=== PATIENT | female | born 1945 | race Caucasian/White ===

== ENCOUNTER 2021-07-10 08:42 | Day surgery (SDC) | payer MEDICARE ==
[2021-07-08 09:57] VITALS: BMI 30.5
[~2021-07-10 08:42] MED LIST: LACTATED RINGERS 1,000 ML IV SCH; LIDOCAINE 1% (10MG/ML) FOR IV START INTRADERMA PRN
[2021-07-10 09:08] VITALS: TEMP 96.8
[2021-07-10] MEDS ORDERED: LIDOCAINE 1% INJ 10MG/ML (20 ML MDV) ONE (09:25)
[2021-07-10] MEDS ORDERED: PROPOFOL 10 MG/ML 20 ML VIAL IV ONE (09:25)
--- NOTE | 2021-07-10 09:52 | P.PCN ---
Date of Procedure: 07/10/21 Procedure(s) Performed: BRIEF HISTORY: Patient is a 76-year-old pleasant female scheduled for an elective colonoscopy as a part of evaluation of prior history of colon polyps. Last colonoscopy was 5 years ago. PROCEDURE PERFORMED: Colonoscopy. PREOPERATIVE DIAGNOSIS: History of colon polyps. IV sedation per Anesthesia. PROCEDURE: After informed consent was obtained, the patient, was brought into the endoscopy unit. IV sedation was administered by Anesthesia under continuous monitoring. Digital rectal examination was normal. Initially the Olympus CF-160 flexible video colonoscope was then inserted in the rectum, gradually advanced into the cecum without any difficulty. Careful examination was performed as the scope was gradually being withdrawn. Ileocecal valve and the appendiceal orifice were visualized and appeared normal. Prep was excellent. Mucosa of the cecum, ascending colon, transverse colon, descending colon, sigmoid colon, and rectum appeared normal. Scattered sigmoid diverticulosis. Reactive Retroflexion was performed in the rectum and no lesions were seen. The patient tolerated the procedure well. IMPRESSION: Normal-appearing colon from rectum to cecum with no evidence of colorectal neoplasia Scattered sigmoid diverticulosis. RECOMMENDATIONS: Findings of this examination were discussed with the patient as well as her family. She was advised to have a repeat screening colonoscopy in 10 years..
[2021-07-10 10:26] VITALS: BP 110/70; PULSE 70; RESP 20
== END 2021-07-10 10:24 | disposition home or self-care (01) ==
LOC: ORWHC2ENDO 08:42
PROVIDERS: ATTEND Internal Medicine Gastroenterology
DX: Z12.11 Encounter for screening for malignant neoplasm of colon (principal); K57.90 Diverticulosis of intestine, part unspecified, without perforation or abscess without bleeding; K21.9 Gastro-esophageal reflux disease without esophagitis; Z86.010 Personal history of colon polyps; Z79.899 Other long term (current) drug therapy
CPT/HCPCS: J2001; J2704; G0105; 45378

== ENCOUNTER 2022-04-25 11:04 | Emergency (ER) | payer MEDICARE ==
[2022-04-25 11:35] VITALS: TEMP 97.6
[2022-04-25] MEDS ORDERED: KETOROLAC 15 MG/ML 1 ML VIAL IM STA (12:02)
[2022-04-25] MEDS ORDERED: ORPHENADRINE 30 MG/ML 2 ML VIAL IM STA (12:02)
--- NOTE | 2022-04-25 12:10 | ED ---
General Adult HPI - General Chief complaint: Extremity Injury, Lower Stated complaint: leg pain Time Seen by Provider: 04/25/22 11:46 Source: patient, family, RN notes reviewed Mode of arrival: ambulatory Limitations: no limitations - History of Present Illness Initial comments: Patient is a pleasant 76-year-old female presenting to the emergency room with lower back pain that is radiating into her bilateral lower extremities. She reports that she is having sciatica pain in the posterior aspects of both thighs. She notes pain with ambulation but is able to ambulate and move her extremities with out weakness. She has had increase in lower back pain with radiation for the last 2 days without any improvement in symptoms. She denies any trauma or known inciting incident. She reports known chronic back pain but typically does not have any sciatica. In addition to her back pain she has a past medical history significant for osteoporosis, osteoarthritis and hypertension. - Related Data Home Medications Medication Instructions Recorded Confirmed Alendronate Sodium [Fosamax] 70 mg PO WEEKLY 07/08/21 07/10/21 Aspirin 81 mg PO DAILY 07/08/21 07/10/21 Calcium Carbonate/Vitamin D3 1 each PO BID 07/08/21 07/10/21 [Caltrate 600 Plus D3 20 Mcg (800 Iu)] Losartan Potassium [Cozaar] 100 mg PO DAILY 07/08/21 07/10/21 [place]-3 Fatty Acids/Fish Oil [Fish 1 each PO BID 07/08/21 07/10/21 Oil 1,000 mg Softgel] Previous Rx's Medication Instructions Recorded Cyclobenzaprine HCl 5 mg PO TID 5 Days #15 tab 04/25/22 Ketorolac [Toradol] 10 mg PO Q8H PRN 5 Days #15 tab 04/25/22 Allergies Allergy/AdvReac Type Severity Reaction Status Date / Time No Known Allergies Allergy Verified 04/25/22 11:32 Review of Systems ROS Statement: Those systems with pertinent positive or pertinent negative responses have been documented in the HPI. ROS Other: All systems not noted in ROS Statement are negative. Past Medical History Past Medical History: Hypertension, Musculoskeletal Disorder, Osteoarthritis (OA) Additional Past Medical History / Comment(s): hx. colon polyps, osteoporosis, chronic back pain History of Any Multi-Drug Resistant Organisms: None Reported Past Surgical History: Hysterectomy, Orthopedic Surgery Additional Past Surgical History / Comment(s): colonoscopies, left foot surg. Past Anesthesia/Blood Transfusion Reactions: Postoperative Nausea & Vomiting (PONV) Past Psychological History: No Psychological Hx Reported Smoking Status: Never smoker Past Alcohol Use History: Occasional Past Drug Use History: None Reported General Exam Limitations: no limitations General appearance: alert, in no apparent distress Head exam: Present: atraumatic, normocephalic, normal inspection Eye exam: Present: normal appearance, PERRL, EOMI. Absent: scleral icterus, co njunctival injection, periorbital swelling ENT exam: Present: normal exam, mucous membranes moist Neck exam: Present: normal inspection, full ROM Respiratory exam: Present: normal lung sounds bilaterally. Absent: respiratory distress, wheezes, rales, rhonchi, stridor Cardiovascular Exam: Present: regular rate, normal rhythm, normal heart sounds. Absent: systolic murmur, diastolic murmur, rubs, gallop, clicks GI/Abdominal exam: Present: soft, normal bowel sounds. Absent: distended, tenderness, guarding, rebound, rigid Extremities exam: Present: normal inspection, full ROM, normal capillary refill. Absent: tenderness, pedal edema, joint swelling, calf tenderness Back exam: Present: normal inspection, full ROM. Absent: tenderness, muscle spasm, paraspinal tenderness, vertebral tenderness Expanded Back exam: Absent: saddle anesthesia Back exam: Negative Straight Leg Raising: Left, Right Neurological exam: Present: alert, oriented X3, CN II-XII intact Psychiatric exam: Present: normal affect, normal mood Skin exam: Present: warm, dry, intact, normal color. Absent: rash Course Vital Signs 04/25/22 04/25/22 11:28 13:50 Temperature 97.6 F Pulse Rate 58 L 57 L Respiratory 18 16 Rate Blood Pressure 161/93 154/92 O2 Sat by Pulse 100 99 Oximetry Medical Decision Making - Medical Decision Making 76-year-old female presenting with lower back pain with bilateral sciatica posteriorly without any blunt force trauma. History of osteopenia and disc disease. Given history of osteopenia will obtain x-ray of the lumbar spine to rule out fracture. Will give a dose of Toradol and muscle relaxer and evaluate efficacy. Symptoms much improved with Toradol and muscle relaxer. X-ray negative for acute findings. Will discharge home on short course of tordol and muscle relaxer. Advise follow-up with her primary care provider. Avoid heavy lifting. Range of motion as tolerated encouraged. Case discussed with Dr. Clinton. - Radiology Data Radiology results: report reviewed, image reviewed X-ray lumbosacral spine Impression: 1. Diffuse degenerative disc disease. 2.Mild degenerative facet changes Disposition Clinical Impression: Lumbago with sciatica Disposition: HOME SELF-CARE Condition: Stable Instructions (If sedation given, give patient instructions): Sciatica (ED), Lumbar Radiculopathy (ED), Lower Back Exercises (ED) Additional Instructions: Please utilize Toradol and muscle relaxer as prescribed. Do not take any other NSAIDs while taking Toradol. Range of motion as tolerated encouraged. Avoid heavy lifting and bedrest. Please follow-up with your primary care provider. Please return to the Emergency Department if symptoms worsen or any other concerns. Prescriptions: Cyclobenzaprine HCl 5 mg PO TID 5 Days #15 tab Ketorolac [Toradol] 10 mg PO Q8H PRN 5 Days #15 tab PRN Reason: Pain Is patient prescribed a controlled substance at d/c from ED?: No Referrals: Reinaldo Batista MD [Primary Care Provider] - 1-2 days Time of Disposition: 13:12
--- NOTE | 2022-04-25 13:36 | XR ---
EXAMINATION TYPE: XR lumbosacral spine min 4V DATE OF EXAM: 04/25/2022 COMPARISON: None HISTORY: Low back pain radiating to legs TECHNIQUE: 5 view lumbar spine FINDINGS: There are 5 lumbar-type vertebral bodies. Pedicles are intact. Subtle scoliosis is present. Mild facet degenerative changes are present greatest at L5-S1. No spondylolytic defects are evident. There is narrowing of the L5-S1 disc height. Posterior disc space narrowing is present L4-5. Disc sp rachel narrowing is present L2-3 and L1-2. IMPRESSION: 1. Diffuse degenerative disc changes discussed above. 2. Mild degenerative facet changes.
[2022-04-25 13:52] VITALS: BP 154/92; PULSE 57; RESP 16
== END 2022-04-25 13:52 | disposition home or self-care (01) ==
LOC: EC 11:04
DX: I10 Essential (primary) hypertension (principal); M19.90 Unspecified osteoarthritis, unspecified site; M54.40 Lumbago with sciatica, unspecified side; Z79.811 Long term (current) use of aromatase inhibitors; Z79.899 Other long term (current) drug therapy
CPT/HCPCS: 72110; 99283; 96372 ×2; J2360; J1885

== ENCOUNTER → 2022-11-15 | Outpatient (CLI) | payer MEDICARE | END | disposition home or self-care (01) | LOC: LABWHC1 10:10 | PROVIDERS: ATTEND Family Medicine | DX: Z51.81 Encounter for therapeutic drug level monitoring (principal) | CPT/HCPCS: 36415; 81241 ==

== ENCOUNTER → 2023-02-09 | Outpatient (CLI) | payer MEDICARE ==
--- NOTE | 2023-02-09 16:19 | MR ---
EXAMINATION TYPE: MR lumbar spine wo/w con DATE OF EXAM: 02/09/2023 COMPARISON: Lumbosacral spine radiograph 04/25/2022 HISTORY: Low back pain into back of both legs TECHNIQUE: Multiplanar, multisequence images of the lumbar spine were acquired without and with 7 mL intravenous Gadavist gadolinium contrast. FINDINGS: Lumbar segments are intact. No paraspinal masses are identified. Conus medullaris has a normal appe arance. Grade 1 anterolisthesis of L4 on L5 without evidence of pars defects. Type II Modic changes i nvolving the inferior endplate of L1 and superior endplate of L2. There is corresponding enhancement. Additionally there is prominent degenerative changes with STIR signal abnormality and enhancement in volving the L4-L5 facet joints. L1-L2: Right paracentral disc herniation superimposed upon a broad-based disc bulge with caudal migra tion of approximately 6 mm. This results in moderate central canal stenosis. Bilateral facet arthropa thy. Mild bilateral neural foraminal stenosis. L2-L3: Broad-based disc bulge with ligamentum flavum buckling and bilateral facet arthropathy contrib sherine to moderate central canal stenosis. There is moderate bilateral neural foraminal stenosis. L3-L4: Broad-based disc bulge with ligamentum flavum buckling bilateral facet arthropathy contribute to moderate central canal stenosis. Moderate left and mild to moderate right neural foraminal stenosi s. L4-L5: Grade 1 anterolisthesis. Broad-based disc bulge with ligamentum flavum buckling. Bilateral fac et arthropathy demonstrated with ligamentum flavum buckling contributing to severe central canal sten osis. Moderate bilateral neural foraminal stenosis. There is a synovial cyst measuring up to 1.2 cm a long the posterior right aspect of the thecal sac with moderate to severe effacement at the mid L5 le hilton. This does not demonstrate enhancement. L5-S1: Broad-based disc bulge with bilateral facet arthropathy contributing to minimal central canal stenosis. Severe bilateral neural foraminal stenosis. Right extrarenal pelvis. Bilateral renal sinus cysts. IMPRESSION: 1. Right paracentral disc herniation with caudal migration superimposed upon a disc bulge at L1-L2 ca using moderate central canal stenosis. 2. Multilevel degenerative disc disease and facet arthropathy as described above. This is most promin ent at L1-L2 disc space and L4-L5 facet joints with enhancement identified. There is a synovial cyst arising from the L4-L5 facet joint on the right causing moderate to severe central canal stenosis. Se dayan central canal stenosis at L4-L5, moderate central canal stenosis at L2-L3 and L3-L4 secondary to disc bulges with facet arthropathy and ligamentum flavum buckling. 3. Grade 1 anterolisthesis of L4 on L5.
== END | disposition home or self-care (01) ==
LOC: RADMRIMAIN 14:30
PROVIDERS: ATTEND Family Medicine
DX: M46.06 Spinal enthesopathy, lumbar region (principal); M51.36 Other intervertebral disc degeneration, lumbar region; M43.16 Spondylolisthesis, lumbar region; M99.73 Connective tissue and disc stenosis of intervertebral foramina of lumbar region; M47.816 Spondylosis without myelopathy or radiculopathy, lumbar region
CPT/HCPCS: 72158; A9585

== ENCOUNTER → 2023-03-02 | Outpatient (CLI) | payer MEDICARE ==
[2023-03-02 11:45] VITALS: BP 112/74; PULSE 61; RESP 16; TEMP 98.4
--- NOTE | 2023-03-02 13:19 | P.PAINPG ---
PQRS Measure Charge Sheet Comment: HISTORY OF PRESENT ILLNESS: 77 yr old female as a referral from Dr Batista presents today w severe and chronic LBP secondary to DDD, spondylosis and facet arthropathy without myelopathy for evaluation. Pt states pain level is provoked at 8/10 in intensity, constant, localized in the lower lub[place] spine, achy in character w shooting pain towards the BL buttocks and LEs. Pain is provoked by walking, standing for a periods of 10 min or more. Pain is alleviated by physician guided exercises 3 times weekly x 4 mo, heat, ice, medications ([place], Neurontin, Tyl, Ibu), topical, reclining, repositioning and rest . Oswestry axial pain score at 11. PMH: OA, HTN, OP PSH: Colonoscopy (2021), Hysterectomy, L Foot Surgery SH: Never smoker, Occasional ETOH use, No illicit drug use FH: Non contributory All: See list Meds: See list REVIEW OF ORGAN SYSTEMS: CONSTITUTIONAL: No fevers or chills. No recent weight loss. NEUROLOGICAL: + numbness and tingling along the distal extremities. No seizure disorders or headaches. MUSCULOSKELETAL: + pain PSYCHIATRIC: Denies current depression or suicidal thoughts. Physical Examinations : Constitutional : Cooperative , not in acute distress . Neurologic : Cranial nerve II to XII intact. No focal neurological deficits. Psychiatric : alert & oriented x 3. Matching mood & appropriate affect. Judgment & insight intact. Musculoskeletal : Cervical Spine Motor strength in the deltoid and biceps: Normal right side. Normal Left side Motor strength biceps and the wrist extensors: Normal right side . Normal left side Motor strength in the triceps muscle: Normal right side. Normal left side Deep tendon reflexes: Normal at the biceps. Normal at Brachioradialis. Normal at triceps Vertebral body tenderness to deep palpation over Cervical facet loading test: positive bilaterally Spurling test: positive bilaterally Neck distraction test: positive bilaterally Hugo sign: positive bilaterally Lumbar spine Motor strength lower extremities ,thigh and legs 5/5 Right side , 5/5 Left side Deep tendon reflexes : Normal Knee J erk. Normal Ankle Jerk Vertebral body tenderness over L5 Davey Test positive Lumbar facet Loading Test: positive Right / positive Left Range of motion of the lumbar spine Flexion 30 degrees, extension 10 degrees Straight Leg Raise test: Left/ Right positive at 35 degrees Molly test: positive right / positive left. Severe tenderness over the Sacroiliac joint on the Right / Left sides Gaenslen test: positive bilaterally Seated flexion test: positive bilaterally. Sacral spine : Severe tenderness over the Sacroiliac joint: right side / left side Range of motion: Flexion of the lumbar spine <60 degrees Range of motion: Extension of the lumbar spine <20 degrees Gaenslen's Test positive Brenton's Test positive Molly test: positive right side / left side Thigh Thrust Test Sacral Thrust Test Imaging: MRI non contrast of the lumbar spine from 02/09/23 reviewed Assessment/ Plan : Lumbar DDD Recommendation of HYACINTH L5-S1 #1. May need a series of injections for optimal pain relief. Risks, benefits of procedure discussed and patient verbalized understanding. Admits to aspirin or anti- coagulant use or medical history of diabetes. Protocol for discontinuation/ continuation of medications arnulfo procedure discussed. Minimal anesthesia provided, if clinically indicated, consisting of Versed and Fentanyl. All questions answered. I have spent greater than 30 minutes on patient care today. Dr Mc was available by phone for the evaluation of this patient. The time was used to review the medical records including relevant urine studies and Prescription history (MAPs), review of the available imaging, evaluation and examination of the patient, coordination of care with the medical staff and if applicable referring physicians, as well as creation of the medical record Home Medications: Ambulatory Orders Alendronate Sodium [Fosamax] 70 mg PO WEEKLY 07/08/21 Aspirin 81 mg PO DAILY 07/08/21 Calcium Carbonate/Vitamin D3 [Caltrate 600 Plus D3 20 Mcg (800 Iu)] 1 each PO BID 07/08/21 Losartan Potassium [Cozaar] 100 mg PO DAILY 07/08/21 [place]-3 Fatty Acids/Fish Oil [Fish Oil 1,000 mg Softgel] 1 each PO BID 07/08/21 Cyclobenzaprine HCl 5 mg PO TID 5 Days #15 tab 04/25/22 Ketorolac [Toradol] 10 mg PO Q8H PRN 5 Days #15 tab 04/25/22 Controlled Substance Measures - Controlled Substance Measures Is patient prescribed a controlled substance at discharge?: No
== END ==
LOC: PNWHC3 09:40
PROVIDERS: ATTEND Specialist
DX: M51.16 Intervertebral disc disorders with radiculopathy, lumbar region (principal); I10 Essential (primary) hypertension; M19.90 Unspecified osteoarthritis, unspecified site; Z79.82 Long term (current) use of aspirin; Z79.899 Other long term (current) drug therapy
CPT/HCPCS: 99211

== ENCOUNTER → 2023-04-20 | Outpatient (CLI) | payer MEDICARE ==
[2023-04-20 10:02] VITALS: BP 115/77; PULSE 58; RESP 15; TEMP 98.6
--- NOTE | 2023-04-20 15:17 | P.PAINPG ---
PQRS Measure Charge Sheet Comment: HISTORY OF PRESENT ILLNESS: 77 yr old female presents today w severe and chronic LBP secondary to DDD, spondylosis and facet arthropathy without myelopathy for evaluation s/p HYACINTH L5- S1 #1. Pt states she experienced 80% pain relief x 4 wks and ongoing s/p procedure. Pt states pain level is provoked at 2/10 in intensity, constant, localized in the lower lumbar spine, achy in character w shooting pain towards the BL buttocks and LEs. Pain is provoked by walking, standing for a periods of 10 min or more. Pain is alleviated by physician guided exercises 3 times weekly x 4 mo, heat, ice, medications, topical, reclining, repositioning and rest . Oswestry axial pain score at 4. Interventional procedures include HYACINTH L5-S1 #1 Medications include [place], Neurontin, Tyl, ibu REVIEW OF ORGAN SYSTEMS: CONSTITUTIONAL: No fevers or chills. No recent weight loss. NEUROLOGICAL: + numbness and tingling along the distal extremities. No seizure disorders or headaches. MUSCULOSKELETAL: + pain PSYCHIATRIC: Denies current depression or suicidal thoughts. Physical Examinations : Constitutional : Cooperative , not in acute distress . Neurologic : Cranial nerve II to XII intact. No focal neurological deficits. Psychiatric : alert & oriented x 3. Matching mood & appropriate affect. Judgment & insight intact. Musculoskeletal : Cervical Spine Motor strength in the deltoid and biceps: Normal right side. Normal Left side Motor strength biceps and the wrist extensors: Normal right side . Normal left side Motor strength in the triceps muscle: Normal right side. Normal left side Deep tendon reflexes: Normal at the biceps. Normal at Brachioradialis. Normal at triceps Vertebral body tenderness to deep palpation over Cervical facet loading test: positive bilaterally Spurling test: positive bilaterally Neck distraction test: positive bilaterally Hugo sign: positive bilaterally Lumbar spine Motor strength lower extremities ,thigh and legs 5/5 Right side , 5/5 Left side Deep tendon reflexes : Normal Knee Jerk. Normal Ankle Jerk Vertebral body tenderness over L5 Davey Test positive Lumbar facet Loading Test: positive Right / positive Left Range of motion of the lumbar spine Flexion 30 degrees, extension 10 degrees Straight Leg Raise test: Left/ Right positive at 35 degrees Molly test: positive right / positive left. Severe tenderness over the Sacroiliac joint on the Right / Left sides Gaenslen test: positive bilaterally Seated flexion test: positive bilaterally. Sacral spine : Severe tenderness over the Sacroiliac joint: right side / left side Range of motion: Flexion of the lumbar spine <60 degrees Range of motion: Extension of the lumbar spine <20 degrees Gaenslen's Test positive Brenton's Test positive Molly test: positive right side / lef t side Thigh Thrust Test Sacral Thrust Test Imaging: MRI non contrast of the lumbar spine from 02/09/23 reviewed Assessment/ Plan : Lumbar DDD Will manage residual pain and may RTC on an as needed basis. All questions answered. I have spent greater than 30 minutes on patient care today. Dr Mc was available by phone for the evaluation of this patient. The time was used to review the medical records including relevant urine studies and Prescription history (MAPs), review of the available imaging, evaluation and examination of the patient, coordination of care with the medical staff and if applicable referring physicians, as well as creation of the medical record PQRS Narrative: Hx Alcohol Use (MH) No Home Medications: Ambulatory Orders Alendronate Sodium [Fosamax] 70 mg PO CERVANTES 07/08/21 Aspirin 81 mg PO DAILY 07/08/21 Calcium Carbonate/Vitamin D3 [Caltrate 600 Plus D3 20 Mcg (800 Iu)] 1 each PO BID 07/08/21 Losartan Potassium [Cozaar] 100 mg PO DAILY 07/08/21 [place]-3 Fatty Acids/Fish Oil [Fish Oil 1,000 mg Softgel] 1 each PO BID 07/08/21 Cholecalciferol [Vitamin D3 (25 Mcg = 1000 Iu)] 25 mcg PO DAILY 03/21/23 Cyanocobalamin (Vitamin B-12) [Vitamin B-12] 1,000 mcg PO DAILY 03/21/23 Gabapentin [Neurontin] 300 mg PO BID 03/21/23 Turmeric Root Extract [Turmeric] 500 mg PO DAILY 03/21/23 Controlled Substance Measures - Controlled Substance Measures Is patient prescribed a controlled substance at discharge?: No
== END ==
LOC: PNWHC3 09:37
PROVIDERS: ATTEND Specialist
DX: M51.36 Other intervertebral disc degeneration, lumbar region (principal); Z79.82 Long term (current) use of aspirin
CPT/HCPCS: 99211

== ENCOUNTER → 2023-07-04 | Outpatient (CLI) | payer MEDICARE ==
[2023-07-04 11:55] VITALS: BP 128/72; PULSE 89; RESP 17; TEMP 98.9
--- NOTE | 2023-07-04 14:01 | P.PAINPG ---
PQRS Measure Charge Sheet Comment: HISTORY OF PRESENT ILLNESS: A 78 yr old female presents today w severe and chronic LBP secondary to DDD, spondylosis and facet arthropathy without myelopathy for evaluation. Pt states pain level is provoked at 8/10 in intensity, constant, localized in the lower lumbar spine, predominantly axial, achy in character w occasional shooting pain towards the BLEs. Pain is provoked by walking/ standing for a periods of 10 min or more. Pain is alleviated by physician guided exercises 3 times weekly since Nov 2022, heat, ice, medications, topical, reclining, repositioning and rest. Oswestry axial pain score at 17. Interventional procedures include HYACINTH L5-S1 #1 Medications include [place], Neurontin, Tyl, ibu REVIEW OF ORGAN SYSTEMS: CONSTITUTIONAL: No fevers or chills. No recent weight loss. NEUROLOGICAL: + numbness and tingling along the distal extremities. No seizure disorders or headaches. MUSCULOSKELETAL: + pain PSYCHIATRIC: Denies current depression or suicidal thoughts. Physical Examinations : Constitutional : Cooperative , not in acute distress . Neurologic : Cranial nerve II to XII intact. No focal neurological deficits. Psychiatric : alert & oriented x 3. Matching mood & appropriate affect. Judgment & insight intact. Musculoskeletal : Cervical Spine Motor strength in the deltoid and biceps: Normal right side. Normal Left side Motor strength biceps and the wrist extensors: Normal right side . Normal left side Motor strength in the triceps muscle: Normal right side. Normal left side Deep tendon reflexes: Normal at the biceps. Normal at Brachioradialis. Normal at triceps Vertebral body tenderness to deep palpation over Cervical facet loading test: positive bilaterally Spurling test: positive bilaterally Neck distraction test: positive bilaterally Hugo sign: positive bilaterally Lumbar spine Motor strength lower extremities ,thigh and legs 5/5 Right side , 5/5 Left side Deep tendon reflexes : Normal Knee Jerk. Normal Ankle Jerk Vertebral body tenderness over L5 Davey Test positive Lumbar facet Loading Test: positive Right / positive Left Range of motion of the lumbar spine Flexion 30 degrees, extension 10 degrees Straight Leg Raise test: Left/ Right positive at 35 degrees Molly test: positive right / positive left. Severe tenderness over the Sacroiliac joint on the Right / Left sides Gaenslen test: positive bilaterally Seated flexion test: positive bilaterally. Sacral spine : Severe tenderness over the Sacroiliac joint: right side / left side Range of motion: Flexion of the lumbar spine <60 degrees Range of motion: Extension of the lumbar spine <20 degrees Gaenslen's Test positive Brenton's Test positive Molly test: positive right side / left side Thigh Thrust Test Sacral Thrust Test Imaging: MRI non contrast of the lumbar spine from 02/09/23 reviewed Assessment/ Plan : Lumbar DDD Recommendation of BL TFESI L5-S1 #1. May need a series of injectinos for optimal pain relief. Risks, benefits of procedure discussed and pt verbalized understanding. Protocol for discontinuation/ continuation of medications surrounding procedure discussed. All questions answered. I have spent greater than 30 minutes on patient care today. Dr Mc was available by phone for the evaluation of this patient. The time was used to review the medical records including relevant urine studies and Prescription history (MAPs), review of the available imaging, evaluation and examination of the patient, coordination of care with the medical staff and if applicable referring physicians, as well as creation of the medical record PQRS Narrative: Hx Alcohol Use (MH) No Home Medications: Ambulatory Orders Alendronate Sodium [Fosamax] 70 mg PO CERVANTES 07/08/21 Aspirin 81 mg PO DAILY 07/08/21 Calcium Carbonate/Vitamin D3 [Caltrate 600 Plus D3 20 Mcg (800 Iu)] 1 each PO BID 07/08/21 Losartan Potassium [Cozaar] 100 mg PO DAILY 07/08/21 [place]-3 Fatty Acids/Fish Oil [Fish Oil 1,000 mg Softgel] 1 each PO BID 07/08/21 Cholecalciferol [Vitamin D3 (25 Mcg = 1000 Iu)] 25 mcg PO DAILY 03/21/23 Cyanocobalamin (Vitamin B-12) [Vitamin B-12] 1,000 mcg PO DAILY 03/21/23 Gabapentin [Neurontin] 300 mg PO BID 03/21/23 Turmeric Root Extract [Turmeric] 500 mg PO DAILY 03/21/23 Controlled Substance Measures - Controlled Substance Measures Is patient prescribed a controlled substance at discharge?: No
== END ==
LOC: PNWHC3 11:00
PROVIDERS: ATTEND Specialist
DX: M51.36 Other intervertebral disc degeneration, lumbar region (principal); Z79.82 Long term (current) use of aspirin
CPT/HCPCS: 99211

== ENCOUNTER 2023-07-14 10:43 | Day surgery (SDC) | payer MEDICARE ==
[~2023-07-14 10:43] MED LIST changes: -LIDOCAINE 1% (10MG/ML) FOR IV START INTRADERMA PRN
[2023-07-14 11:25] VITALS: RESP 16; TEMP 97.5
[2023-07-14] MEDS ORDERED: methylPREDNISolone ACETATE 40 MG/ML 1 ML VIAL ONE (12:52)
[2023-07-14] MEDS ORDERED: IOPAMIDOL M200 10 ML VIAL ONE (12:52)
--- NOTE | 2023-07-14 13:04 | P.PCN ---
Date of Procedure: 07/14/23 Procedure(s) Performed: PREOPERATIVE DIAGNOSIS: 1-Lumbar radiculopathy . 2-lumbar degenerative disc disease. POSTOPERATIVE DIAGNOSIS: 1-lumbar radiculopathy. 2-lumbar degenerative disc disease. PROCEDURE 1. Transforaminal epidural steroid injection under fluoroscopic guidance atBilateral L5-S1 level. (Fluoroscopy images stored on file in the radiology Department ) 2. Lumbar epidurogram . ANESTHESIA: Local with 1% lidocaine 3 ml. EBL: Minimal PROCEDURE INDICATION: The patient with low back pain and radiculopathy symptoms unresponsive to conservative treatment. PROCEDURE DESCRIPTION / TECHNIQUE: The patient was seen and identified in the preoperative area. Risks, benefits, complications, and alternatives were discussed with the patient. The patient agreed to proceed with the procedure and signed the consent. IV was started, and vital signs were stable. Patient was taken to the OR and time out was completed. The patient was placed in the prone position on procedure table and a pillow was placed under the abdomen to reduce lumbar lordosis. The lumbosacral area was prepped and draped in the usual sterile fashion. Critical pause was taken. Vital signs were closely monitored during the procedure. Using oblique fluoroscopy, the chin of the ``Dave dog at right L5-S1 level was identified, and the skin and deeper tissues just below was localized with 1% lidocaine. Subsequently, a 22-gauge 3.5-inch spinal needle was advanced under a tunneled view fluoroscopic guidance just underneath the chin of the ``Dave dog at the right L5-S1 Under lateral fluoroscopy, the needle was then advanced to the posterior border of the interforaminal space. After negative aspiration of CSF and blood and with no paresthesias, 1 mL Isovue 200 contrast dye was injected excellent epidurogram and outlining of the nerve root Subsequently, 3 mL of block solution containing 20 mg Depo-Medrol and 2 mL of 0.9% normal saline PF was injected. Needle was removed and the same procedure was repeated at the left L5-S1 level . At the end of the procedure, skin was cleansed, and bandages were applied. COMPLICATIONS:none DISPOSITION / PLANS: The patient was placed in a supine position and transferred to the recovery area in a stable condition for observation. There was no evidence of lower extremity motor or sensory deficit after the procedure. Patient was discharged from the recovery room after meeting discharge criteria. Home discharge instructions were given to the patient by the staff. The patient was reexamined prior to discharge.
--- NOTE | 2023-07-14 13:12 | FL ---
EXAMINATION TYPE: FL guided pain mgmt statistic DATE OF EXAM: 07/14/2023 CLINICAL HISTORY: Low back pain. TECHNIQUE: Fluoroscopy. COMPARISON: None. FINDINGS: Fluoroscopic guidance was provided during pain relief procedure performed by Dr. Mc . A total of 6.8 seconds of fluoroscopic time was utilized during the procedure and two spot images are acquired. Images acquired shows needle localization at L5 level. IMPRESSION: As Above. TOTAL DAP = 0.29441 mGy x m2.
[2023-07-14 13:27] VITALS: BP 133/82; PULSE 69
== END 2023-07-14 13:28 | disposition home or self-care (01) ==
LOC: ORPAIN 10:43
PROVIDERS: ATTEND Specialist
DX: M51.16 Intervertebral disc disorders with radiculopathy, lumbar region (principal); M47.26 Other spondylosis with radiculopathy, lumbar region; Z79.82 Long term (current) use of aspirin
CPT/HCPCS: 64483; J1030; Q9966

== ENCOUNTER → 2023-08-04 | Outpatient (CLI) | payer MEDICARE ==
[2023-08-04 10:31] VITALS: BP 136/66; PULSE 89; RESP 15; TEMP 97.9
--- NOTE | 2023-08-04 14:35 | P.PAINPG ---
PQRS Measure Charge Sheet Comment: HISTORY OF PRESENT ILLNESS: A 78 yr old female presents today w severe and chronic LBP secondary to DDD, spondylosis and facet arthropathy without myelopathy for evaluation s/p BL TFESI L5-S1 #1. Pt states she experienced 40 % pain relief x 3 wks s/p procedure. Pt states pain level is provoked at 6/10 in intensity, constant, localized in the lower lumbar spine, predominantly axial, achy in character without shooting pain. Pain is provoked by climbing stairs or walking/ standing for a periods of 10 min or more. Pain is alleviated by physician guided exercises 3 times weekly since Nov 2022, heat, ice, medications, topical, reclining, repositioning and rest. Oswestry axial pain score at 16. Interventional procedures include HYACINTH L5-S1 x1, BL TFESI L5-S1 x1 Medications include [place], Neurontin, Tyl, ibu REVIEW OF ORGAN SYSTEMS: CONSTITUTIONAL: No fevers or chills. No recent weight loss. NEUROLOGICAL: + numbness and tingling along the distal extremities. No seizure disorders or headaches. MUSCULOSKELETAL: + pain PSYCHIATRIC: Denies current depression or suicidal thoughts. Physical Examinations : Constitutional : Cooperative , not in acute distress . Neurologic : Cranial nerve II to XII intact. No focal neurological deficits. Psychiatric : alert & oriented x 3. Matching mood & appropriate affect. Judgment & insight intact. Musculoskeletal : Cervical Spine Motor strength in the deltoid and biceps: Normal right side. Normal Left side Motor strength biceps and the wrist extensors: Normal right side . Normal left side Motor strength in the triceps muscle: Normal right side. Normal left side Deep tendon reflexes: Normal at the biceps. Normal at Brachioradialis. Normal at triceps Vertebral body tenderness to deep palpation over Cervical facet loading test: positive bilaterally Spurling test: positive bilaterally Neck distraction test: positive bilaterally Hugo sign: positive bilaterally Lumbar spine Motor strength lower extremities ,thigh and legs 5/5 Right side , 5/5 Left side Deep tendon reflexes : Normal Knee Jerk. Normal Ankle Jerk Vertebral body tenderness Davey Test positive Taut bands w twitch response over BL L2-S1 Lumbar facet Loading Test: positive Right / positive Left Range of motion of the lumbar spine Flexion 30 degrees, extension 10 degrees Straight Leg Raise test: Left/ Right positive at 35 degrees Molly test: positive right / positive left. Severe tenderness over the Sacroiliac joint on the Right / Left sides Dereje test: positive bilaterally Seated flexion test: positive bilaterally. Sacral spine : Severe tenderness over the Sacroiliac joint: right side / left side Range of motion: Flexion of the lumbar spine <60 degrees Range of motion: Extension of the lumbar spine <20 degrees Gaenslen's Test positive Brenton's Test positive Molly test: positive right side / left side Thigh Thrust Test Sacral Thrust Test Imaging: MRI non contrast of the lumbar spine from 02/09/23 reviewed Assessment/ Plan : Lumbar DDD, Lumbar stenosis Recommendation of BL TPIs L2-S1 #1. Will follow up w Dr Smith to explore additional treatment options. Risks, benefits of procedure discussed and pt verbalized understanding. Protocol for discontinuation/ continuation of medications surrounding procedure discussed. All questions answered. I have spent greater than 30 minutes on patient care today. Dr Mc was available by phone for the evaluation of this patient. The time was used to review the medical records including relevant urine studies and Prescription history (MAPs), review of the available imaging, evaluation and examination of the patient, coordination of care with the medical staff and if applicable referring physicians, as well as creation of the medical record PQRS Narrative: Hx Alcohol Use (MH) No Home Medications: Ambulatory Orders Alendronate Sodium [Fosamax] 70 mg PO CERVANTES 07/08/21 Aspirin 81 mg PO DAILY 07/08/21 Calcium Carbonate/Vitamin D3 [Caltrate 600 Plus D3 20 Mcg (800 Iu)] 1 each PO BID 07/08/21 Losartan Potassium [Cozaar] 100 mg PO DAILY 07/08/21 [place]-3 Fatty Acids/Fish Oil [Fish Oil 1,000 mg Softgel] 1 each PO BID 07/08/21 Cholecalciferol [Vitamin D3 (25 Mcg = 1000 Iu)] 25 mcg PO DAILY 03/21/23 Cyanocobalamin (Vitamin B-12) [Vitamin B-12] 1,000 mcg PO DAILY 03/21/23 Gabapentin [Neurontin] 300 mg PO BID 03/21/23 Turmeric Root Extract [Turmeric] 500 mg PO DAILY 03/21/23 Controlled Substance Measures - Controlled Substance Measures Is patient prescribed a controlled substance at discharge?: No
== END ==
LOC: PNWHC3 10:08
PROVIDERS: ATTEND Specialist
DX: M51.37 Other intervertebral disc degeneration, lumbosacral region (principal); M43.16 Spondylolisthesis, lumbar region; Z79.82 Long term (current) use of aspirin
CPT/HCPCS: 99211

== ENCOUNTER 2023-08-18 09:49 | Day surgery (SDC) | payer MEDICARE ==
[2023-08-15 16:44] VITALS: BMI 27.8
--- NOTE | 2023-08-18 11:43 | P.PN ---
Subjective Progress Note Date: 08/18/23 Since follow-up visit for this 78 years old female with a history of chronic and severe low back pain, he is diagnosed with lumbar degenerative disc disease lumbar spinal stenosis, lumbar spondylosis with lumbar facet arthropathy, patient had minimal benefit from transforaminal epidural steroid injection, she was scheduled to have a trigger point injection, to be done today, the preop holding area examination was negative for any trigger point in the lumbar paraspinal muscles Objective - Vital Signs Vital signs: Vital Signs Temp 97.7 F 08/18/23 11:20 Pulse 68 08/18/23 11:20 Resp 18 08/18/23 11:20 BP 137/79 08/18/23 11:20 Pulse Ox 95 08/18/23 11:20 FiO2 Intake & Output 08/17/23 08/18/23 08/18/23 18:59 06:59 18:59 Weight 69.8 kg - Exam Physical Examinations : -Constitutiona : Cooperative , not in acute distress . -HEENT : nech : supple , no Lymphadenopathy , normal thyroid size . : eyes : no ptosis , no icterus, no photophobia . - neurologic : Cranial nerve II to XII intact , no focal neurological deffecit . -psychatric : alert , oriented X 3 , appropriate affect , intact judgment and insight . -Lymphatic : no Lymphadenopathy . - musculoskeltal : Lumber spine moter stegnth lower extremities ,thigh and legs 5/5 Right side , 5/5 Left side deep tendon reflexes : normal Knee Jerk , normal ankle Jerk lumber facet Loading Test =positive Right , positive Left Range of motion of the lumbar spine Flexion 30 degrees, extension 10 degrees strait leg raising test = positive at 45 degree Fabere test= positive Right , and positive LT . tenderness over the Sacroiliac joint on the Right , and Left sides Assessment and Plan Plan: Assessment and plan=1-lumbar spondylosis with lumbar facet arthropathy that myelopathy. 2-lumbar spinal stenosis. 3-lumbar degenerative disc disease. Patient had transforaminal epidural steroid injection with minimal benefit. Patient was scheduled to have trigger point injection today but the exam was negative for any trigger point injection in the lumbar paraspinal muscles, and exam was directing towards the facetogenic component of the low back pain, patient will be a good candidate to have diagnostic medial branch block lumbar area at L4-5 and L5-S1, she has good result we will proceed with the RFA, procedure risk and benefit and alternative discussed with the patient and agreed with the proceeding, we will get approval from the insurance before we will proceed with the injection Time with Patient: Less than 30
[2023-08-18 12:11] VITALS: BP 137/79; PULSE 68; RESP 18; TEMP 97.7
== END 2023-08-18 11:55 | disposition home or self-care (01) ==
LOC: ORPAIN 09:49
PROVIDERS: ATTEND Specialist
DX: Z53.8 Procedure and treatment not carried out for other reasons (principal); M51.36 Other intervertebral disc degeneration, lumbar region; M47.816 Spondylosis without myelopathy or radiculopathy, lumbar region; M48.061 Spinal stenosis, lumbar region without neurogenic claudication; G89.29 Other chronic pain

== ENCOUNTER 2023-09-02 11:14 | Day surgery (SDC) | payer MEDICARE ==
[2023-09-02] MEDS: LACTATED RINGERS 1,000 ML IV SCH (12:02)
[2023-09-02] MEDS ORDERED: MIDAZOLAM 2 MG/2 ML VIAL ONE (12:11)
[2023-09-02] MEDS ORDERED: fentaNYL (PF) 50 MCG/ML 2 ML AMP ONE (12:11)
[2023-09-02] MEDS ORDERED: ROPIVACAINE 5MG/ML 20ML VIAL ONE (12:16)
[2023-09-02 12:20] VITALS: TEMP 97.2
--- NOTE | 2023-09-02 12:29 | P.PCN ---
Date of Procedure: 09/02/23 Procedure(s) Performed: PREOPERATIVE DIAGNOSIS : 1- Lumbar spondylosis with Facet Arthropathy with out myelopathy . 2- Lumber degenerative disc disease POSTOPERATIVE DIAGNOSIS: 1- Lumbar spondylosis with Facet Arthropathy without myelopathy . 2- Lumber degenerative disc disease PROCEDURE: Diagnostic bilateral L3 , L4 , and L5 medial branch block under fluoroscopy guidance(fluoroscopy images available in the radiology Department ) ( To target the facet joint between Bilateral L4-5 , and L5-S1 ) ANESTHESIA:, Monitored anesthesia care as per anesthesia department. EBL: Minimal COMPLICATION: None PROCEDURE INDICATION: Chronic low back pain secondary to Facet arthropathy unresponsive to conservative treatment. PROCEDURE DESCRIPTION: the patient was seen and identified in the preop holding area , risks and benefits and possible complications of the procedure and alternative were discussed with the patient, and the patient agreed to proceed with the procedure and signed the consent and vital signs monitored during the procedure and fluoroscopy was used to maximize the benefit and accuracy of the needle placement, and sedation was given to decrease patient anxiety, patient was taken to the procedure room and placed in prone position vital signs monitored in the back prepped with chlorhexidine X3 then under strict sterile technique using a right oblique fluoroscopy ,the junction of the transverse process and the superior articulating process of the right L3 , L4 , and L5 vertebra which corresponding to the fluoroscopy image of the eye of the Dave dog on the block side for the medial branches and subsequently , after local infiltration of skin and subcu tissuies with Ropivacaine 0.5 % , one mL at each level ,then 22-gauge Quincke-type needles , 3 needle was used , each one of them placed at the junction of the base of the transverse process and the superior articular process at the appropriate level, and the needle was advanced until the periosteum contacted, needle placement confirmed with AP oblique and lateral view and after appropriate needle placement confirmed, and after negative aspiration for heme and CSF and there was no paresthesia 1-1/2 mL of Ropivacaine 0.5% , then half mL injected at each level after negative aspiration the needle subsequently removed and the same procedure repeated for the left side at left side at L3 , L4 and L5 levels. At the end of the procedure and the needles removed and a bandage applied after the skin was cleaned the cleaning solution patient taken to recovery room in stable condition and monitors in the recovery room for 20-30 minutes and discharged home in stable condition after discharge criteria met and patient will follow up with the pain clinic in 2-4 weeks
--- NOTE | 2023-09-02 12:58 | FL ---
EXAMINATION TYPE: FL guided pain mgmt statistic DATE OF EXAM: 09/02/2023 FLUOROSCOPY Fluoroscopy time of 8 seconds was used during bilateral lumbar facet blocks. 4 image/s document/s th e procedure. 0.11406 mGycm2 DAP
[2023-09-02] MEDS ORDERED: ONDANSETRON 4 MG/2 ML VIAL ONE (13:11)
[2023-09-02] MEDS: ONDANSETRON 4 MG/2 ML VIAL IVP ONE (13:13)
[2023-09-02 13:28] VITALS: RESP 18
[2023-09-02 14:35] VITALS: BP 111/65; PULSE 60
== END 2023-09-02 14:15 | disposition home or self-care (01) ==
LOC: ORPAIN 11:14
PROVIDERS: ATTEND Specialist
DX: M47.816 Spondylosis without myelopathy or radiculopathy, lumbar region (principal); M51.36 Other intervertebral disc degeneration, lumbar region; I10 Essential (primary) hypertension; G89.29 Other chronic pain; K21.9 Gastro-esophageal reflux disease without esophagitis; Z79.899 Other long term (current) drug therapy; Z79.82 Long term (current) use of aspirin
CPT/HCPCS: 64493; 64494 ×2; J2250; J2405; J3010; J2795; 99152

== ENCOUNTER → 2023-09-28 | Outpatient (CLI) | payer MEDICARE ==
[2023-09-28 10:36] VITALS: BP 114/80; PULSE 62; RESP 15; TEMP 98.3
--- NOTE | 2023-09-28 14:26 | P.PAINPG ---
PQRS Measure Charge Sheet Comment: HISTORY OF PRESENT ILLNESS: A 78 yr old female presents today w severe and chronic LBP secondary to DDD, spondylosis and facet arthropathy without myelopathy for evaluation s/p BL MBB L3-L5 #1. Pt states she experienced 100 % pain relief x 4 hrs s/p procedure. Pt states pain level is provoked at 7 /10 in intensity, constant, localized in the lower lumbar spine, predominantly axial, achy in character without shooting pain. Pain is provoked by climbing stairs or walking/ standing for a periods of 10 min or more. Pain is alleviated by physician guided exercises 3 times weekly since Nov 2022, heat, ice, medications, topical, reclining, repositioning and rest. Oswestry axial pain score at 16. Interventional procedures include HYACINTH L5-S1 x1, BL TFESI L5-S1 x1 Medications include [place], Neurontin, Tyl, ibu REVIEW OF ORGAN SYSTEMS: CONSTITUTIONAL: No fevers or chills. No recent weight loss. NEUROLOGICAL: + numbness and tingling along the distal extremities. No seizure disorders or headaches. MUSCULOSKELETAL: + pain PSYCHIATRIC: Denies current depression or suicidal thoughts. Physical Examinations : Constitutional : Cooperative , not in acute distress . Neurologic : Cranial nerve II to XII intact. No focal neurological deficits. Psychiatric : alert & oriented x 3. Matching mood & appropriate affect. Judgment & insight intact. Musculoskeletal : Cervical Spine Motor strength in the deltoid and biceps: Normal right side. Normal Left side Motor strength biceps and the wrist extensors: Normal right side . Normal left side Motor strength in the triceps muscle: Normal right side. Normal left side Deep tendon reflexes: Normal at the biceps. Normal at Brachioradialis. Normal at triceps Vertebral body tenderness to deep palpation over Cervical facet loading test: positive bilaterally Spurling test: positive bilaterally Neck distraction test: positive bilaterally Hugo sign: positive bilaterally Lumbar spine Motor strength lower extremities ,thigh and legs 5/5 Right side , 5/5 Left side Deep tendon reflexes : Normal Knee Jerk. Normal Ankle Jerk Vertebral body tenderness Davey Test positive Taut bands w twitch response Lumbar facet Loading Test: positive Right / positive Left L4-L5, L5-S1 Range of motion of the lumbar spine Flexion 30 degrees, extension 10 degrees Straight Leg Raise test: Left/ Right positive at 35 degrees Molly test: positive right / positive left. Severe tenderness over the Sacroiliac joint on the Right / Left sides Liliamlen test: positive bilaterally Seated flexion test: positive bilaterally. Sacral spine : Severe tenderness over the Sacroiliac joint: right side / left side Range of motion: Flexion of the lumbar spine <60 degrees Range of motion: Extension of the lumbar spine <20 degrees Gaenslen's Test positive Brenton's Test positive Molly test: positive right side / left side Thigh Thrust Test Sacral Thrust Test Imaging: MRI non contrast of the lumbar spine from 02/09/23 reviewed Assessment/ Plan : Lumbar DDD, Lumbar stenosis Recommendation of BL MBB L3-L5 #2. May need a series of injections, up until RFA, for optimal pain relief. Risks, benefits of procedure discussed and pt verbalized understanding. Protocol for discontinuation/ continuation of medications surrounding procedure discussed. Minimal anesthesia including Fentanyl and Versed if clinically indicated. All questions answered. I have spent greater than 30 minutes on patient care today. Dr Mc was av ailable by phone for the evaluation of this patient. The time was used to review the medical records including relevant urine studies and Prescription history (MAPs), review of the available imaging, evaluation and examination of the patient, coordination of care with the medical staff and if applicable referring physicians, as well as creation of the medical record PQRS Narrative: Hx Alcohol Use (MH) No Home Medications: Ambulatory Orders Alendronate Sodium [Fosamax] 70 mg PO CERVANTES 07/08/21 Aspirin 81 mg PO DAILY 07/08/21 Calcium Carbonate/Vitamin D3 [Caltrate 600 Plus D3 20 Mcg (800 Iu)] 1 each PO BID 07/08/21 Losartan Potassium [Cozaar] 100 mg PO DAILY 07/08/21 Cholecalciferol [Vitamin D3 (25 Mcg = 1000 Iu)] 25 mcg PO DAILY 03/21/23 Cyanocobalamin (Vitamin B-12) [Vitamin B-12] 1,000 mcg PO DAILY 03/21/23 Gabapentin [Neurontin] 300 mg PO BID 03/21/23 Turmeric Root Extract [Turmeric] 500 mg PO DAILY 03/21/23 Controlled Substance Measures - Controlled Substance Measures Is patient prescribed a controlled substance at discharge?: No
== END ==
LOC: PNWHC3 09:59
PROVIDERS: ATTEND Specialist
DX: M51.37 Other intervertebral disc degeneration, lumbosacral region (principal); M47.817 Spondylosis without myelopathy or radiculopathy, lumbosacral region; M48.061 Spinal stenosis, lumbar region without neurogenic claudication; G89.29 Other chronic pain
CPT/HCPCS: 99211

== ENCOUNTER 2023-10-21 11:04 | Day surgery (SDC) | payer MEDICARE ==
[2023-10-20 10:11] VITALS: BMI 26.6
[2023-10-21] MEDS ORDERED: ONDANSETRON 4 MG/2 ML VIAL ONE (11:28)
[2023-10-21] MEDS: ONDANSETRON 4 MG/2 ML VIAL IVP ONE (11:30)
[2023-10-21] MEDS: LACTATED RINGERS 1,000 ML IV SCH (11:32)
[2023-10-21] MEDS ORDERED: fentaNYL (PF) 50 MCG/ML 2 ML AMP ONE (11:33)
[2023-10-21] MEDS ORDERED: MIDAZOLAM 2 MG/2 ML VIAL ONE (11:33)
[2023-10-21] MEDS ORDERED: ROPIVACAINE 5MG/ML 20ML VIAL ONE (11:37)
--- NOTE | 2023-10-21 11:47 | P.PCN ---
Date of Procedure: 10/21/23 Procedure(s) Performed: PREOPERATIVE DIAGNOSIS : 1- Lumbar spondylosis with Facet Arthropathy without myelopathy . 2- Lumber degenerative disc disease POSTOPERATIVE DIAGNOSIS: 1- Lumbar spondylosis with Facet Arthropathy without myelopathy . 2- Lumber degenerative disc disease PROCEDURE: Diagnostic bilateral L3 , L4 , and L5 medial branch block under fluoroscopy guidance(fluoroscopy images available in the radiology Department ) ( To target the facet joint between Bilateral L4-5 , and L5-S1 )#2nd ANESTHESIA:, Monitored anesthesia care as per anesthesia department. EBL: Minimal COMPLICATION: None PROCEDURE INDICATION: Chronic low back pain secondary to Facet arthropathy unresponsive to conservative treatment. PROCEDURE DESCRIPTION: the patient was seen and identified in the preop holding area , risks and benefits and possible complications of the procedure and alternative were discussed with the patient, and the patient agreed to proceed with the procedure and signed the consent and vital signs monitored during the procedure and fluoroscopy was used to maximize the benefit and accuracy of the needle placement, and sedation was given to decrease patient anxiety, patient was taken to the procedure room and placed in prone position vital signs monitored in the back prepped with chlorhexidine X3 then under strict sterile technique using a right oblique fluoroscopy ,the junction of the transverse process and the superior articulating process of the right L3 , L4 , and L5 vertebra which corresponding to the fluoroscopy image of the eye of the Dave dog on the block side for the medial branches and subsequently , after lo aubree infiltration of skin and subcu tissuies with Ropivacaine 0.5 % , one mL at each level ,then 22-gauge Quincke-type needles , 3 needle was used , each one of them placed at the junction of the base of the transverse process and the superior articular process at the appropriate level, and the needle was advanced until the periosteum contacted, needle placement confirmed with AP oblique and l ateral view and after appropriate needle placement confirmed, and after negative aspiration for heme and CSF and there was no paresthesia 1-1/2 mL of Ropivacaine 0.5% , then half mL injected at each level after negative aspiration the needle subsequently removed and the same procedure repeated for the left side at left side at L3 , L4 and L5 levels. At the end of the procedure and the needles removed and a bandage applied after the skin was cleaned the cleaning solution patient taken to recovery room in stable condition and monitors in the recovery room for 20-30 minutes and discharged home in stable condition after discharge criteria met and patient will follow up with the pain clinic in 2-4 weeks
[2023-10-21 11:59] VITALS: RESP 16; TEMP 97
[2023-10-21 12:44] VITALS: BP 119/75; PULSE 65
--- NOTE | 2023-10-21 18:21 | FL ---
EXAMINATION TYPE: FL guided pain mgmt statistic DATE OF EXAM: 10/21/2023 FLUOROSCOPY Fluoroscopy time of 7.2 seconds was used during bilateral lumbar facet blocks. 4 image/s document/s the procedure. DAP 0.61490 mGycm2.
== END 2023-10-21 12:27 | disposition home or self-care (01) ==
LOC: ORPAIN 11:04
PROVIDERS: ATTEND Specialist
DX: M51.36 Other intervertebral disc degeneration, lumbar region (principal); M47.816 Spondylosis without myelopathy or radiculopathy, lumbar region; G89.29 Other chronic pain; I10 Essential (primary) hypertension; Z90.710 Acquired absence of both cervix and uterus; Z79.899 Other long term (current) drug therapy; Z98.890 Other specified postprocedural states; Z79.82 Long term (current) use of aspirin
CPT/HCPCS: 64493; 64494 ×2; J2250; J2405; J3010; J2795

== ENCOUNTER → 2023-11-09 | Outpatient (CLI) | payer MEDICARE ==
[2023-11-09 10:53] VITALS: BP 111/75; PULSE 67; RESP 16; TEMP 97.5
--- NOTE | 2023-11-09 14:48 | P.PAINPG ---
PQRS Measure Charge Sheet Comment: HISTORY OF PRESENT ILLNESS: A 78 yr old female presents today w severe and chronic LBP secondary to DDD, spondylosis and facet arthropathy without myelopathy for evaluation s/p BL MBB L3-L5 #2. Pt states she experienced 100 % pain relief x 3 hrs s/p procedure. Pt states pain level is provoked at 8 /10 in intensity, constant, localized in the lower lumbar spine, predominantly axial, achy in character without shooting pain. Pain is provoked by climbing stairs or walking/ standing for a periods of 10 min or more. Pain is alleviated by physician guided exercises 3 times weekly since Nov 2022, heat, ice, medications, topical, reclining, repositioning and rest. Oswestry axial pain score at 15. Interventional procedures include HYACINTH L5-S1 x1, BL TFESI L5-S1 x1, BL MBB L3-L5 x2 Medications include [place], Neurontin, Tyl, ibu REVIEW OF ORGAN SYSTEMS: CONSTITUTIONAL: No fevers or chills. No recent weight loss. NEUROLOGICAL: + numbness and tingling along the distal extremities. No seizure disorders or headaches. MUSCULOSKELETAL: + pain PSYCHIATRIC: Denies current depression or suicidal thoughts. Physical Examinations : Constitutional : Cooperative , not in acute distress . Neurologic : Cranial nerve II to XII intact. No focal neurological deficits. Psychiatric : alert & oriented x 3. Matching mood & appropriate affect. Judgment & insight intact. Musculoskeletal : Cervical Spine Motor strength in the deltoid and biceps: Normal right side. Normal Left side Motor strength biceps and the wrist extensors: Normal right side . Normal left side Motor strength in the triceps muscle: Normal right side. Normal left side Deep tendon reflexes: Normal at the biceps. Normal at Brachioradialis. Normal at triceps Vertebral body tenderness to deep palpation over Cervical facet loading test: positive bilaterally Spurling test: positive bilaterally Neck distraction test: positive bilaterally Hugo sign: positive bilaterally Lumbar spine Motor strength lower extremities ,thigh and legs 5/5 Right side , 5/5 Left side Deep tendon reflexes : Normal Knee Jerk. Normal Ankle Jerk Vertebral body tenderness Davey Test positive Taut bands w twitch response Lumbar facet Loading Test: positive Right / positive Left L4-L5, L5-S1 Range of motion of the lumbar spine Flexion 30 degrees, extension 10 degrees Straight Leg Raise test: Left/ Right positive at 35 degrees Molly test: positive right / positive left. Severe tenderness over the Sacroiliac joint on the Right / Left sides Gaenslen test: positive bilaterally Seated flexion test: positive bilaterally. Sacral spine : Severe tenderness over the Sacroiliac joint: right side / left side Range of motion: Flexion of the lumbar spine <60 degrees Range of motion: Extension of the lumbar spine <20 degrees Gaenslen's Test positive Brenton's Test positive Molly test: positive right side / left side Thigh Thrust Test Sacral Thrust Test Imaging: MRI non contrast of the lumbar spine from 02/09/23 reviewed Assessment/ Plan : Lumbar DDD, Lumbar stenosis Recommendation of BL RFA L3-L5. Exhibited optimal pain relief w prior BL MBBs of the L3-L5. Risks, benefits of procedure discussed and pt verbalized understanding. Protocol for discontinuation/ continuation of medications surroun ding procedure discussed. Minimal anesthesia including Fentanyl and Versed if clinically indicated. All questions answered. I have spent greater than 30 minutes on patient care today. Dr Mc was available by phone for the evaluation of this patient. The time was used to review the medical records including relevant urine studies and Prescription history (MAPs), review of the available imaging, evaluation and examination of the patient, coordination of care with the medical staff and if applicable referring physicians, as well as creation of the medical record PQRS Narrative: Hx Alcohol Use (MH) No Home Medications: Ambulatory Orders Alendronate Sodium [Fosamax] 70 mg PO CERVANTES 07/08/21 Aspirin 81 mg PO DAILY 07/08/21 Calcium Carbonate/Vitamin D3 [Caltrate 600 Plus D3 20 Mcg (800 Iu)] 1 each PO BID 07/08/21 Losartan Potassium [Cozaar] 100 mg PO DAILY 07/08/21 Cholecalciferol [Vitamin D3 (25 Mcg = 1000 Iu)] 25 mcg PO DAILY 03/21/23 Cyanocobalamin (Vitamin B-12) [Vitamin B-12] 1,000 mcg PO DAILY 03/21/23 Gabapentin [Neurontin] 300 mg PO BID 03/21/23 Turmeric Root Extract [Turmeric] 500 mg PO DAILY 03/21/23 Budesonide/Glycopyr/Formoterol [Breztri Aerosphere Inhaler] 2 puff INHALATION BID 10/20/23 Controlled Substance Measures - Controlled Substance Measures Is patient prescribed a controlled substance at discharge?: No
== END ==
LOC: PNWHC3 09:49
PROVIDERS: ATTEND Specialist
DX: M51.36 Other intervertebral disc degeneration, lumbar region (principal); M48.061 Spinal stenosis, lumbar region without neurogenic claudication
CPT/HCPCS: 99211

== ENCOUNTER → 2023-12-08 | Outpatient (CLI) | payer MEDICARE ==
[2023-12-08 10:42] VITALS: BP 137/76; PULSE 60; RESP 16
--- NOTE | 2023-12-08 13:28 | P.PAINPG ---
PQRS Measure Charge Sheet Comment: HISTORY OF PRESENT ILLNESS: A 78 yr old female presents today w severe and chronic LBP secondary to DDD, spondylosis and facet arthropathy without myelopathy for evaluation s/p BL RFA L3-L5 . Pt states she experienced 80 % pain relief s/p procedure. Pt states pain level is provoked at 9 /10 in intensity, intermittent, localized in the lower lumbar spine, predominantly axial, achy in character without shooting pain. Pain is provoked by climbing stairs or walking/ standing for a periods of 10 min or more. Pain is alleviated by physician guided exercises 3 times weekly since Nov 2022, heat, ice, medications, topical, reclining, repositioning and rest. Oswestry axial pain score at 14. Interventional procedures include HYACINTH L5-S1 x1, BL TFESI L5-S1 x1, BL RFA L3-L5 (October 2023) Medications include [place], Neurontin, Tyl, ibu REVIEW OF ORGAN SYSTEMS: CONSTITUTIONAL: No fevers or chills. No recent weight loss. NEUROLOGICAL: + numbness and tingling along the distal extremities. No seizure disorders or headaches. MUSCULOSKELETAL: + pain PSYCHIATRIC: Denies current depression or suicidal thoughts. Physical Examinations : Constitutional : Cooperative , not in acute distress . Neurologic : Cranial nerve II to XII intact. No focal neurological deficits. Psychiatric : alert & oriented x 3. Matching mood & appropriate affect. Judgment & insight intact. Musculoskeletal : Cervical Spine Motor strength in the deltoid and biceps: Normal right side. Normal Left side Motor strength biceps and the wrist extensors: Normal right side . Normal left side Motor strength in the triceps muscle: Normal right side. Normal left side Deep tendon reflexes: Normal at the biceps. Normal at Brachioradialis. Normal at triceps Vertebral body tenderness to deep palpation over Cervical facet loading test: positive bilaterally Spurling test: positive bilaterally Neck distraction test: positive bilaterally Hugo sign: positive bilaterally Lumbar spine Motor strength lower extremities ,thigh and legs 5/5 Right side , 5/5 Left side Deep tendon reflexes : Normal Knee J erk. Normal Ankle Jerk Vertebral body tenderness Davey Test positive Taut bands w twitch response Lumbar facet Loading Test: positive Right / positive Left L4-L5, L5-S1 Range of motion of the lumbar spine Flexion 30 degrees, extension 10 degrees Straight Leg Raise test: Left/ Right positive at 35 degrees Molly test: positive right / positive left. Severe tenderness over the Sacroiliac joint on the Right / Left sides Gaenslen test: positive bilaterally Seated flexion test: positive bilaterally. Sacral spine : Severe tenderness over the Sacroiliac joint: right side / left side Range of motion: Flexion of the lumbar spine <60 degrees Range of motion: Extension of the lumbar spine <20 degrees Gaenslen's Test positive Brenton's Test positive Molly test: positive right side / left side Thigh Thrust Test Sacral Thrust Test Imaging: MRI non contrast of the lumbar spine from 02/09/23 reviewed Assessment/ Plan : Lumbar DDD, Lumbar stenosis Recommendation of follow up w Dr Smith to explore additional treatment options. Mobic 7.5mg #30 w 1 RF. Use side effects adverse reactions and safe storage discussed. All questions answered. I have spent greater than 30 minutes on patient care today. Dr Mc was available by phone for the evaluation of this patient. The time was used to review the medical records including relevant urine studies and Prescription his tory (MAPs), review of the available imaging, evaluation and examination of the patient, coordination of care with the medical staff and if applicable referring physicians, as well as creation of the medical record PQRS Narrative: Hx Alcohol Use (MH) No Home Medications: Ambulatory Orders Alendronate Sodium [Fosamax] 70 mg PO CERVANTES 07/08/21 Aspirin 81 mg PO DAILY 07/08/21 Calcium Carbonate/Vitamin D3 [Caltrate 600 Plus D3 20 Mcg (800 Iu)] 1 each PO BID 07/08/21 Losartan Potassium [Cozaar] 100 mg PO DAILY 07/08/21 Cholecalciferol [Vitamin D3 (25 Mcg = 1000 Iu)] 25 mcg PO DAILY 03/21/23 Cyanocobalamin (Vitamin B-12) [Vitamin B-12] 1,000 mcg PO DAILY 03/21/23 Gabapentin [Neurontin] 300 mg PO TID 03/21/23 Turmeric Root Extract [Turmeric] 500 mg PO DAILY 03/21/23 Budesonide/Glycopyr/Formoterol [Breztri Aerosphere Inhaler] 2 puff INHALATION BID 10/20/23 Meloxicam [Mobic] 7.5 mg PO DAILY 30 Days #30 tab 12/08/23 Controlled Substance Measures - Controlled Substance Measures Is patient prescribed a controlled substance at discharge?: No
== END ==
LOC: PNWHC3 09:54
PROVIDERS: ATTEND Specialist
DX: M51.37 Other intervertebral disc degeneration, lumbosacral region (principal); M48.061 Spinal stenosis, lumbar region without neurogenic claudication
CPT/HCPCS: 99211

== ENCOUNTER → 2024-02-08 | Outpatient (CLI) | payer MEDICARE ==
--- NOTE | 2024-03-07 08:46 | CT ---
Patient: Mihaela Evangelista Ordering Physician: Unknown, Unknown ID: [id number] Phone, Pager: Phone : N/A Pager: N/A : 02/08/2024 Age/Gender: 2D, F Primary Location: N/A Procedure: CT lumbar spine wo con Study Date: 02/08/2024 2:27:00 PM EXAMINATION TYPE: CT lumbar spine wo con CT DLP: 933 mGycm, Automated exposure control for dose reduction was used. DATE OF EXAM: 02/15/2024 7:46 AM COMPARISON: None. CLINICAL INDICATION: Low back pain with sciatica TECHNIQUE: Multiple axial images were obtained from the midportion of T11 through the sacroiliac mehnaz nts. Soft tissue and bone windows in coronal and sagittal planes were obtained and reviewed. Contrast used: mL of , (None, if empty). Oral contrast used: (None, if empty). FINDINGS: Alignment: There are 5 lumbar type vertebral bodies within normal alignment. Bone: Moderate to severe degeneration changes spine worse at L1-L2 adjoining endplate sclerosis displ aced septum is multilevel facet arthropathy throughout the spine. Discs: T12-L1: No spinal canal or neural foraminal stenosis is identified. L1-L2: No spinal canal or neural foraminal stenosis is identified. L2-L3: No spinal canal or neural foraminal stenosis is identified. L3-L4: Facet joint arthropathy, osteophytes and disc bulging result in mild spinal canal stenosis and mild bilateral neural foraminal stenosis. L4-L5: Grade 1 anterolisthesis with severe spinal canal stenosis secondary to disc bulge and facet emeka int arthropathy. There is moderate bilateral neural foraminal stenosis. L5-S1: Degeneration changes with suspected synovial cyst measuring 11 mm displacing the spinal canal. Is moderate bilateral neural foraminal stenosis. Other: Atherosclerosis of the arterial vasculature. Moderate amount of stool throughout this colon. IMPRESSION: 1. No evidence for spinal fracture. 2. Severe degeneration changes throughout the lumbar spine. 3. L5-S1 possible synovial cyst measuring 11 mm which displaces and fills the spinal canal.. Further evaluation with MRI recommended. 4. L4-L5 grade 1 anterolisthesis with severe spinal canal stenosis secondary disc bulge and facet emeka int arthropathy. 5. Moderate spinal canal stenosis at L3-L4 secondary disc bulge and facet joint arthropathy.
== END | disposition home or self-care (01) ==
LOC: RADCTMAIN 14:38
PROVIDERS: ATTEND Orthopaedic Surgery
DX: M43.16 Spondylolisthesis, lumbar region (principal); M48.061 Spinal stenosis, lumbar region without neurogenic claudication; M51.36 Other intervertebral disc degeneration, lumbar region
CPT/HCPCS: 72131

== ENCOUNTER → 2024-04-25 | Outpatient (CLI) | payer MEDICARE | END | disposition home or self-care (01) | LOC: LABPAT 16:28 | PROVIDERS: ATTEND Orthopaedic Surgery | DX: Z01.818 Encounter for other preprocedural examination (principal); Z22.322 Carrier or suspected carrier of Methicillin resistant Staphylococcus aureus; M43.16 Spondylolisthesis, lumbar region | CPT/HCPCS: 87070 ==

== ENCOUNTER → 2024-04-26 | Outpatient (CLI) | payer MEDICARE | END | disposition home or self-care (01) | LOC: LABPAT 13:52 | PROVIDERS: ATTEND Orthopaedic Surgery | DX: Z01.812 Encounter for preprocedural laboratory examination (principal); M43.16 Spondylolisthesis, lumbar region | CPT/HCPCS: 86850; 86900; 86901 ==

== ENCOUNTER 2024-05-01 05:33 | Inpatient (IN) | payer MEDICARE ==
[~2024-05-01 05:33] MED LIST changes: -LACTATED RINGERS 1,000 ML IV SCH; +TRANEXAMIC 1,000 MG/100ML-NACL 1,000 MG in SALINE 1 100ML.BAG IVPB PRN
[2024-05-01] MEDS ORDERED: LIDOCAINE 1% (10MG/ML) FOR IV START INTRADERMA PRN (06:06)
--- NOTE | 2024-05-01 06:34 | P.HPOR ---
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 I reviewed the patient's clinical syndrome, physical findings, and imaging studies during the appointment today. It is my impression that the patient has a diagnosis of. 1. L4-S1 spondylosis with stenosis severe and neurogenic claudication 2. L4-5 Grade 1 spondylolisthesis, unstable. 3. 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 Grade 1 retrolitheisis L1-L2 5.Bilateral lower extremity radiculopathy PLAN: Discussion: I have discussed with the patient her clinical signs and sx as well as imaging, treatment options and progress. At this time she is failing conservative measures for >6mo in the form of PT, HEP, INjections, Rx and OTC medications, Massage, Chiropractics and she states she wants a better solution to get her back to life. She is not able to do her ADLs without significant issues and she is ready for a chagne. We discussed surgery including options, risks and benefits and she has elected to proceed as outlined below. Surgical Recommendation: L4-S1 OPEN POSTEROLATERAL AND INTERBODY FUSION WITH DECOMPRESSION FOR SPONDYLOLISTHESIS CORRECTION, NEURAL DECOMPRESSION AND STABILIZATION. FOLLOW UP WITH PCP FOR LABS, EKG, CXR AND CLEARANCE FOR SURGERY REVIEW RISKS BELOW. Surgical Procedure Risk Review Mihaela Flores is a 78 year old female presenting for evaluation of sudden onset of low back pain, LE weakness, continued progressive sx despite conservative measures, instability feeling in back, and clicking and motion. It was my pleasure to have seen and examined Ms. Flores. In our visit today we have had a chance to go over subjective complaints, physical examination findings and treatments, including the natural course history without intervention and various interventional options. The imaging demonstrates Grade 1 spondylolisthesis unstable L4-5 with spondylosis, severe L4-S1; L1-2 HNP with stenosis, and retrolisthesis . On physical exam, Ms. Flores demonstrates Low back pain, severe and progressive with instability feeling on F/E with clicking sound and pain. Painful ROM, weakness in LE b/l as well as radiculopathy and neurogenic claudication. I explained to the patient that as her condition progresses it could cause progressive sx, continued pain, progressive debility, continued weakness and or worsening weakness . At this time, based on the patients imaging and physical exam, I recommend surgery in the form or a: L4-S1 POSTEROLATERAL AND INTERBODY FUSION WITH DECOMPRESSION AND STABILIZATION . I discussed the risk and benefits of this procedure at length with Ms. Flores. The patient agreed to consider pursuing the procedure mentioned above. Plan: 1. L4-S1 POSTEROLATERAL AND INTERBODY FUSION WITH DECOMPRESSION AND STABILIZATION 2. Follow up with PCP for surgical clearance 3. Review of surgical risks and benefits as well as an educational packet on the proposed surgical procedure. Risks: All surgical procedures come with inherent risks, including those related to positioning, anesthesia, intraoperative findings, and postoperative comp lications. It is important to understand that surgery does not come with any guarantee of a successful outcome as complications and adverse events are always possible. The patient was given a handout in office today discussing the surgical procedure and risks associated with the intervention, both of which were discussed with the patient. These risks include but are not limited to the following: ? Experiencing same, different or even worse symptoms in back, neck, arms, or legs compared to before surgery. ? Requiring further surgery or other forms of treatment presently or at some time in the future at same or other levels of the intended spine surgery. ? On an extreme but fortunately relatively rare basis severe complication such as blindness, stroke, heart attack, temporary and/or permanent nerve injury, paralysis, coma, or may occur, sometimes without known explanation. ? Surgical complications may include but are not limited to risk of infect ion, fluid accumulation in the surgical dissection site, including a seroma or hematoma, that requires additional surgery, wound drainage, bleeding, new numbness or weakness, vision changes/loss, spinal fluid leakage, non-healing and/or infected incision, headaches, difficulty or inability to swallow, hoarseness, hemopneumothorax, pneumothorax, impotence, retrograde ejaculation, vaginal dryness; injury to nerves, spinal cord, blood vessels, lymphatics or other vital organs (i.e., bowel injury, injury to the great vessels); heterotopic bone formation; complications related to the hardware such as screws, rods, cages including misplaced hardware, device failure, instrumentation at the wrong spine level, hardware fracture/breakage, or hardware loosening; vertebral failure of the spinal column above or below the newly placed hardware; retained surgical instrumentations or devices and the need for further surgery. ? Medical risks of the planned spine surgery include but are not limited to generalized Infections to the whole body or local areas outside of the surgical site (sepsis), heart attack, bleeding, anaphylaxis, meningitis, seizure, epilepsy, hearing loss, burn cavanaugh, laceration of the head or other areas of the body, bruising, hypersensitivity of the skin, bladder over distension; allergic reaction; shoulder injury related to positioning; fat, blood and air clots to other areas of the body like heart, lungs, brain; failure of internal organs such as lungs, kidneys, liver and excessive bleeding. If blood transfusions are necessary, note that transfusions may cause intolerance reactions such as anaphylaxis or other complex reactions. Despite best efforts, the results of spine surgery might not heal in terms of bone, soft tissues such as skin, fascia, ligaments, and joints. Additionally, in order to achieve best possible results, spine surgery may be carried out beyond the initially planned levels and involve decompression, fusion including insertion of hardware at levels other than the original intended area of surgical interest change some portions of the procedure in order to ensure the best possible outcomes. With spine surgery and spinal fusion, there are different off label uses of instrumentation (devices, implants and hardware) as well as biological substances (bone morphogenic proteins, demineralized bone matrix) as well as using extra bone from allograft sources (i.e. cadaver bone) or autograft (iliac crest bone, ribs, or the spine itself). The patient has been given information about these practices and their inherent risks and benefits. [facility] Physician Assistants are medically trained surgical providers who function in the outpatient, inpatient, and operating room setting under the direct supervision of the attending surgeon.They assist in the operating room with direct supervision of the attending surgeons. The patient has had a chance to review all the listed information, has been given print outs detailing this information, and has had all his/her questions answered to their satisfaction. It was my pleasure to have seen and examined Ms. Flores. In our visit today we have had a chance to go over my understanding of our patient's current condition, the natural course history without intervention and various interventional options. Questions were invited and answered, and the patient wishes to proceed as outlined above. I have seen and examined the patient for 25 minutes and we have spent more than 50% of the time in repeat and detailed counseling about the patient's condition, its natural course history with out and as much as can be predicted with surgery and re-review of various surgical treatment options. In conclusion,Ms. Flores and her spouse/partner requested we proceed with the above suggested surgery and are willing to accept risks and limitations of the suggested surgery as nature of the disease process and our best attempts at treatment for the condition. FOLLOW UP:POST-OP HISTORY: Mihaela presents today for a pre-operative visit preceding her L4-S1 POSTEROLATERAL AND INTERBODY FUSION WITH DECOMPRESSION AND STABILIZATION. She states continued pain in her low back as well as LE. Patient reports an aching anf sharp low ada pain that is exacerbated with activity. Her pain is somewhat better with rest, but she is having a lot of night pain in her back and in her legs. She has cramping in her legs that also will not go away and feels like her legs "seize" up on her.Patient is currently takign Gabapentin, Meloxicam, Ketorolac, and Tylenol without resolution of her symptoms. Denies any bowel or bladder issues at this time. NO perineal numbness/tingling. Patient ambulates independently. 03/21/24 Mihaela presents today for follow up on her low back pain as well as CT and MRI results. She states continued pain in her low back as well as LE. She states nothing seems to alleviate her sx at this time. She has tried PT, HEP, Medications Rx and OTC she has done Chiropractics as well as massage. She continues to have pain. She has done Heat and Ice. She has tried alternative modalities as well with no avail. She states she is frustrated and continues to have pain. She states it is aggravated by more activity, somewhat better with rest, but she is having a lot of night pain in her back and in her legs. She has cramping in her legs that also will not go away and feels like her legs "seize" up on her. Denies any bowel or bladder issues at this time. NO perineal numbness/tingling. 01/16/24: Ms. Flores presents to the office today, 01/16/24, for a recheck of her lumbar pain. Since last office visit patient has been following care plan of pain management and has received x 3 lumbar injections and RFA. Patient states she only had relief for approximately 2 weeks. Patient continues to report moderate to severe intermittent aching, shooting, and stabbing lumbar pain that radiates into the bilateral lower extremities with the left side being worse. At this time patient feels she has exhausted all conservative measures and would like to speak with Dr. Smith in regards to possible surgical intervention. Otherwise patient denies any f/c/sob/cp, perineal numbness or tingling, bowel or bladder incontinence/retention. Patient is ambulatoryindependently. The patients' past social, medical, family, surgical history, as well as review of systems, have been reviewed. Please refer to the Neurosurgery History and Physical form that has been scanned into our electronic medical record system. 16 points review of systems completed and as stated in HPI, all other systems reviewed are negative. PAST TREATMENTS: Physical Therapy in the past 6 months? No, attended a year or more ago. Did it help? No, exacerbated symptoms Physician Directed Home Exercises: Yes Medications: Tylenol Meloxicam, Gabapentin Alternative Interventions: Chiropractic: No Massage therapy: No R.I.C.E: Yes Brace: No Injections: Yes Social History: Reviewed, see appropriate section of the chart for details. P3 Family History: Reviewed, see appropriate section of the chart for details. P2 Past Medical History: Reviewed, see appropriate section of the chart for details. [id number] Medications: Rx: alendronate 70 mg tablet Ref: 0 Instructions: take 1 tablet (70 mg) by oral route once weekly in the morning, at least 30 min before first food, beverage, or medication of day Rx: aspirin 81 mg tablet,delayed release Ref: 0 Instructions: take 1 tablet (81 mg) by oral route once daily Rx: Caltrate 600 plus D Ref: 0 Rx: losartan 100 mg tablet Ref: 0 Instructions: take 1 tablet (100 mg) by oral route once daily Rx: tumeric , Ref: 0 Rx: ketorolac 10 mg tablet Ref: 0 Instructions: take 1 tablet (10 mg) by oral route every 6 hours as needed for up to 5 days total use Rx: TylenoL Ref: 0 Instructions: OTC as needed Rx: gabapentin 600 mg tablet Ref: 0 Instructions: take 1 tablet (600 mg) by oral route 3 times per day Rx: meloxicam 15 mg tablet Ref: 0 Instructions: take 1 tablet (15 mg) by oral route once daily P1 RADIOGRAPHS: 02/08/24 CT of the lumbar spine w/o done at [facility] is reviewed; FIndings: * severe collapse L1-2 with degenerative changes, severe with severe foraminal stenosis Severe degenerative collapse L2-3, spondylosis, stenosis and facet arthrosis Grade I restrolisthesis L3-4 with severe spondylosis and stenosis Grade I spondylolisthesis L4-5, unstable, with vacuum disc and facet arthrosis that is severe. Spondylosis, severe, stenosis severe foraminal and central. L5-S1 spondylotic collapse, facet arthropathy and hypertrophy with severe stenosis. PHYSICAL EXAM: General: AOX3, NAD, Well hydrate, Well nourished HEENT: No lumps or masses Extremities: No color changes, no pooling Hairy Patches: ABSENT Dorsal Skin Dimples: Normal [employer] spots: ABSENT Surgical Incisions:n/a Muscle Appearance: Well formed, no atrophy Palpation: Midline: YES Paracervical: NO Parathoracic: NO Paralumbar: YES SIJ Testing: Yes TTP: No Fort[place] Finger: No FABER4: No Compression: No Distraction: No Thigh thrust: No Hip thrust: No Postural Balance: Coronal: BALANCED Sagittal: BALANCED Shoulder height: LEVEL Pelvic Girdle: LEVEL ROM and Appearance: Neck: UNRESTRICTED Lumbar: RESTRICTED with pain Shoulders: Symmetrical Hips: Symmetrical Knees: Symmetrical Hands: Symmetrical Feet: Symmetrical VASCULAR STATUS: RUE- 2 LUE-2 RLE-2 LLE-2 Edema: NONE NEUROLOGICAL EXAMINATION: Mental Status: Awake, alert, oriented fully with normal attention, concentration and memory. Fluent appropriate speech. CRANIAL NERVES: I: Olfactory not tested. II: Visual acuity normal, no visual field deficit noted with confrontation. III,IV: Normal pupillary reflexes & intact extraocular movements without nystagmus. V,: Intact symmetrical facial sensation. VII: Intact symmetrical facial motor movementVIII: Hearing intact. IX,X: Intact gag, swallow, & normal voice. XI: Sternocleidomastoid, trapezius function intact. XII: Tongue midline with normal movements. 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 YES -Dysdiadochokinesia examination negative bilaterally? YES LOWER EXTREMITY RIGHT LEFT Hip Flexion 4 4 Knee Extension 4 4 Knee Flexion 4 4 Dorsiflexion 4 4 Plantarflexion 4 3 EHL 4 3 FHL 4 3 REFLEXES (0-4/2, NT): RUE-2LUE-2 RLE-2 LLE-2 PATHOLOGICAL REFLEXES: Hoffmans: ABSENT BL Clonus: ABSENT BL Babinski: NEG BL Rectal Tone: INTACT SENSATION (0-4, NT): RUE-2LUE-2 RLE-2 LLE-2 Dermatomal deficit: L4-L5 GAIT AND FUNCTIONAL EVALUATION: Ambulatory aids- INDEPENDENT Rombergs test- NEG toe/heel walk- INTACT Squatting to a min of 60 deg and back- UNABLE Single leg stance- ABLE Hand to finger (nose)- ABLE smooth Trendelenburg sign negative bilaterally PATIENT EDUCATION: Medications Reviewed: YES In our visit today Ms. Flores and I have had a chance to go over my understanding of the patient's current condition, the natural course history without intervention and various interventional options. Questions were invited and answered, and the patient wishes to proceed as outlined above. I will be sure to keep you updated after Ms. Flores returns here for further follow-up. Thank you again for your referral. Please do not hesitate to contact me if you have any further questions. Signed and authenticated by: Terry Gonzalez [facility] [address] [facility], [address] [address] . This message is confidential, intended only for the named recipient(s) and may contain information that is privileged or exempt from disclosure under ap plicable law. If you are not the intended recipient(s), you are notified that the dissemination, distribution or copying of this information is prohibited. If you received this message in error, please notify the sender then delete this message. Past Medical History Past Medical History: Hearing Disorder / Deafness, Hypertension, Musculoskeletal Disorder, Osteoarthritis (OA) Additional Past Medical History / Comment(s): Hx colon polyps, osteoporosis, chronic back pain. History of Any Multi-Drug Resistant Organisms: None Reported Past Surgical History: Hysterectomy, Orthopedic Surgery Additional Past Surgical History / Comment(s): Colonoscopies, left foot surgery, pain clinic procedures. Past Anesthesia/Blood Transfusion Reactions: Postoperative Nausea & Vomiting (PONV) Additional Past Anesthesia/Blood Transfusion Reaction / Comment(s): no hx. of transfusion reaction Smoking Status: Never smoker - Past Family History Mother Family Medical History: No Reported History Medications and Allergies Home Medications Medication Instructions Recorded Confirmed Type Alendronate Sodium [Fosamax] 70 mg PO CERVANTES 07/08/21 05/01/24 History Aspirin 81 mg PO DAILY 07/08/21 05/01/24 History Calcium Carbonate/Vitamin D3 1 each PO BID 07/08/21 05/01/24 History [Caltrate 600 Plus D3 20 Mcg (800 Iu)] Losartan Potassium [Cozaar] 100 mg PO DAILY 07/08/21 05/01/24 History Cholecalciferol [Vitamin D3 (25 25 mcg PO DAILY 03/21/23 05/01/24 History Mcg = 1000 Iu)] Cyanocobalamin (Vitamin B-12) 1,000 mcg PO DAILY 03/21/23 05/01/24 History [Vitamin B-12] Gabapentin [Neurontin] 600 mg PO TID 03/21/23 05/01/24 History Turmeric Root Extract [Turmeric] 500 mg PO DAILY 03/21/23 05/01/24 History Budesonide/Glycopyr/Formoterol 2 puff INHALATION BID 10/20/23 05/01/24 History [Breztri Aerosphere Inhaler] Meloxicam [Mobic] 7.5 mg PO DAILY 30 Days #30 tab 12/08/23 05/01/24 Rx Acetaminophen [Tylenol Extra 500 mg PO Q6H PRN 04/26/24 05/01/24 History Strength] [place]-3/Dha/Epa/Fish Oil [Fish Oil 1 each PO DAILY 04/26/24 05/01/24 History 1,000 mg Softgel] Allergies Allergy/AdvReac Type Severity Reaction Status Date / Time No Known Allergies Allergy Verified 05/01/24 06:21 Physical Examination Osteopathic Statement: *. No significant issues noted on an osteopathic structural exam other than those noted in the History and Physical/Consult.
[2024-05-01] MEDS ORDERED: fentaNYL (PF) 50 MCG/ML 2 ML AMP IV PRN (07:00)
[2024-05-01] MEDS ORDERED: HYDROmorphone 0.5 MG/0.5 ML SYRINGE IVP PRN ×2 (07:00→11:21)
[2024-05-01 07:01] LABS: Glucose,Whole Blood 94 mg/dL (70-110)
[2024-05-01] MEDS: IV FLUID CONTINUATION 1,000 ML IV ONE ×4 (07:01→14:50)
[2024-05-01] MEDS: DEXAMETHASONE SOD PHOSPHATE 4 MG/ML 1 ML VIAL IV ONE (07:06)
[2024-05-01] MEDS: GABAPENTIN 300 MG CAP PO PRN (07:06)
[2024-05-01] MEDS: ONDANSETRON 4 MG/2 ML VIAL IVP PRN (07:06)
[2024-05-01] MEDS: ACETAMINOPHEN TAB 500 MG TAB PO PRN (07:06)
[2024-05-01] MEDS: LACTATED RINGERS 1,000 ML IV SCH (07:07)
[2024-05-01] MEDS ORDERED: WATER FOR INJECTION, STERILE 10 ML VIAL IV ONE (07:25)
[2024-05-01] MEDS ORDERED: ROCURONIUM 10 MG/ML (5 ML VIAL) IV ONE (07:25)
[2024-05-01] MEDS ORDERED: NEOSTIGMINE 1 MG/ML 10 ML VIAL ONE (07:25)
[2024-05-01] MEDS ORDERED: ePHEDrine 50 MG/ML 1 ML VIAL ONE (07:25)
[2024-05-01] MEDS ORDERED: MIDAZOLAM 2 MG/2 ML VIAL ONE (07:25)
[2024-05-01] MEDS ORDERED: SUCCINYLCHOLINE CHLORIDE 200 MG/10 ML VIAL IV ONE (07:25)
[2024-05-01] MEDS ORDERED: fentaNYL (PF) 50 MCG/ML 2 ML AMP ONE (07:25)
[2024-05-01] MEDS ORDERED: GLYCOPYRROLATE 0.2 MG/ML 2 ML VIAL ONE (07:25)
[2024-05-01] MEDS ORDERED: TRANEXAMIC 1,000 MG/100ML-NACL PREMIX BAG ONE (07:25)
[2024-05-01] MEDS ORDERED: PROPOFOL 10 MG/ML 20 ML VIAL IV ONE (07:25)
[2024-05-01] MEDS ORDERED: PHENYLEPHRINE 10 MG/ML VIAL ONE (07:25)
[2024-05-01] MEDS ORDERED: HYDROmorphone (PF) 1 MG/ML ONE (07:25)
[2024-05-01] MEDS ORDERED: LIDOCAINE 1% INJ 10MG/ML (20 ML MDV) ONE (07:25)
[2024-05-01] MEDS ORDERED: KETAMINE HCL IN 0.9 % NACL 50 MG/5 ML SYRINGE ONE (07:25)
[2024-05-01] MEDS ORDERED: ONDANSETRON 4 MG/2 ML VIAL ONE (07:25)
[2024-05-01] MEDS: THROMBIN (BOVINE) 5,000 UNIT VIAL TOPICAL ONE (08:25)
[2024-05-01] MEDS: LACTATED RINGERS 1,000 ML IV ONE (09:42)
[2024-05-01] MEDS: ceFAZolin 3,000 MG in SODIUM CHLORIDE 0.9% IRRIGATIO 3,000 ML IRRIGATION ONE (09:42)
[2024-05-01] MEDS: VANCOMYCIN 1,000 MG VIAL MISCELLANE ONE (10:35)
--- NOTE | 2024-05-01 11:01 | P.OP ---
Date of Procedure: 05/01/24 Preoperative Diagnosis: 1. L4-5 SPONDYLOLISTHESIS, UNSTABLE, GRADE 1 2. L4-S1 SPONDYLOSIS SEVERE WITH SEVERE STENOSIS 3. NEUROGENIC CLAUDICATION 4. LE WEAKNESS 5. LE RADICULOPATHY 6. LE PARESTHESIAS 7. SEVERE FACET ARTHROPATHY Postoperative Diagnosis: 1. L4-5 SPONDYLOLISTHESIS, UNSTABLE, GRADE 1 2. L4-S1 SPONDYLOSIS SEVERE WITH SEVERE STENOSIS 3. NEUROGENIC CLAUDICATION 4. LE WEAKNESS 5. LE RADICULOPATHY 6. LE PARESTHESIAS 7. SEVERE FACET ARTHROPATHY Procedure(s) Performed: 1. L4-5 INTRADISCAL OSTEOTOMY, 3 COLUMN, FOR DEFORMITY CORRECTION (85468) 2. L5-S1 POSTEROLATERAL AND INTERBODY FUSION (32475) 3. L4-5 POSTEROLATERAL AND INTERBODY FUSION (63211) 4. INSTRUMENTATION L4-S1, SEGMENTAL (22128) 5. BILATERAL LAMINECTOMY, FACETECTOMY AND FORAMINOTOMY L4-5 AND L5-S1 (64717, 28290) 6. INSERTION OF BIOMECHANICAL DEVICES L4-5 AND L5-S1, CAGES x2 (16245j0) 7. USE OF [employer] NAVIGATION FOR SCREW PLACEMENT (20174) USE OF IONM ALL SCREWS TESTING >20 mA MOD22: THIS CASE TOOK 75% LONGER THAN ANTICIPATED DUE TO SEVERE EXTENT OF LUMBAR DISEASE, TECHNICALITY OF THE CASE, PATIENT BODY HABITUS. Implants: [employer] RODS AND SCREWS GLOBUS SABLE CAGES X2 12MM, 10MM 10-17MM 15 DEG IB: CONTOUR, ARTHROCELL, ALLOCELL, AUTOGRAFT PL: MAGNATOS, DBM, ARTHROCELL, AUTOGRAFT Anesthesia: GETA Surgeon: Terry Smith Associate Professor Of Geography #1: Gamaliel Emery (WAS PRESENT AND ASSISTED WITH ALL ASEPECTS OF THE CASE FROM POSITION TO DRESSING PLACEMENT) Estimated Blood Loss (ml): 400 IV fluids (ml): 2,550 Urine output (ml): 195 Pathology: none sent Condition: stable Disposition: PACU Indications for Procedure: Mihaela Flores is a 78 year old female presenting for evaluation of sudden onset of low back pain, LE weakness, continued progressive sx despite conse rvative measures, instability feeling in back, and clicking and motion. It was my pleasure to have seen and examined Ms. Flores. In our visit today we have had a chance to go over subjective complaints, physical examination findings and treatments, including the natural course history without intervention and various interventional options. The imaging demonstrates Grade 1 spondylolisthesis unstable L4-5 with spondylosis, severe L4-S1; L1-2 HNP with stenosis, and retrolisthesis . On physical exam, Ms. Flores demonstrates Low back pain, severe and progressive with instability feeling on F/E with clicking sound and pain. Painful ROM, weakness in LE b/l as well as radiculopathy and neurogenic claudication. I explained to the patient that as her condition progresses it could cause progressive sx, continued pain, progressive debility, continued weakness and or worsening weakness . At this time, based on the patients imaging and physical exam, I recommend surgery in the form or a: L4-S1 POSTEROLATERAL AND INTERBODY FUSION WITH DECOMPRESSION AND STABILIZATION . I discussed the risk and benefits of this procedure at length with Ms. Flores. The patient agreed to consider pursuing the procedure mentioned above. Plan: 1. L4-S1 POSTEROLATERAL AND INTERBODY FUSION WITH DECOMPRESSION AND STABILIZATION Description of Procedure: L4-S1 open Decompression and fusion (tatiana) The patient was seen and examined in the preoperative area. All preoperative protocols were followed. Informed consent was obtained, risks and benefits of the procedure were discussed at length. Risks including bleeding infection damage to the surrounding tissue and risk of reoperation were discussed with the patient. Risk of anesthesia up to and including was discussed with the patient. These are outlined in the risk review. They were willing to accept these risks and all the risks of surgery. The patient was given a weight-based dose of antibiotics in the form of 2 g Ancef. The patient was seen and evaluated by the anesthesia team who deemed them fit for surgery. The site was marked, the patient was willing to proceed with the procedure. The patient was transferred to the operative suite by the Department of anesthesia. They were then drifted off to sleep by the department anesthesia and GETA was performed. The patient tolerated this well. Mariano catheter was placed by nursing staff, a-traumatically. Once confirmation of lines and ventilation the patient was transferred to a prone Justin table very carefully. All bony prominences including wrists, elbows, axilla, chest, hips, and thighs, and feet were padded very well. Special attention was paid to the genitalia, and these were padded accordingly. SCDs were placed on bilateral lower extremities and were connected. Arms were well padded and placed on arm boards up and out in the 90/90 position. Once in position, again we confirmed good ventilation capabilities and that lines were running appropriately. The patients Lumbar spine was then exposed. 1010s were placed outlining the incision site. Standard alcohol was used to clean the incision site and allowed to dry. C-arm was used to needle localize the pedicles at L4-S1 and bio-ana the patient and confirm level for incision which was marked with a skin marker. Operative briefing was performed with all teams and everyone in agreement to proceed. The patient was then prepped and draped in a normal sterile fashion. Timeout was then performed, and all parties agreed with the procedure to be performed. Midline skin incision was made over the previously bio-marked area and dissection taken down over the SP of L3-S1. L4-S1 was taken out over facet joints and TPs and a penfield 4 used to ana the L4 pedicle. Lateral image used to confirm levels. Once confirmed, screws were proceeded to be placed b/l at pedicles from L4-S1 using [employer] Navigation. An SP clamp was used, 3D C arm spin obtained and confirmed to be accurate. Once this was confirmed screws were placed using a navigated brent, navigated awl-tap and navigated local company flatbed truck driver. Once screws were placed they were confirmed to be in good position using AP and Lateral fluoroscopy. The wound was then irrigated. Screws were tested and all tested above 20 mA. We then proceeded to decompression and cage placement. Attention was then turned to interbody fusion at L5-S1. Bilateral laminectomy, complete facetectomy and foraminotomy performed at L5-S1 using high speed brent and Kerrison rongeur. The ligamentum was removed and the dural sac decompressed. Exiting and traversing roots visualized and decompressed. Neural elements were then protected, and disc space accessed with an osteotome. Sequential shaving then done under lateral imaging and complete discectomy performed using carolina, pituitary and curette. Once good bleeding endplates accomplished and good height yazidism with trials, a combination of autograft, allograft and synthetic placed anterior in the disc space. The cage was then selected and impacted into place under lateral imaging. The cage was then expanded restoring height, lordosis and alignment. The cage was backfilled with bone graft through a funnel. The career services manager was removed and the area inspected. Good cage placement, stable cage and no injuries. Area was irrig ated copiously, and meticulous hemostasis achieved. The tubular retractor was then removed under direct visualization. Attention was then turned to interbody fusion at L4-5. Bilateral laminectomy, complete facetectomy and foraminotomy performed at L4-5 using high speed brent and Kerrison rongeur. The ligamentum was removed and the dural sac decompressed. Exiting and traversing roots visualized and decompressed. Neural elements were then protected, and disc space accessed with an osteotome. Three column intradiscal osteotomy was then done for mobilization, deformity correction and decompression with complete disc replacement in JANES fashion. Osteotome was passed into the anterior 2/3 of the inferior portion of L4 and superior of L5. This was removed with a pituitary. Sequential shaving then done under lateral imaging and complete discectomy performed using carolina, pituitary and curette. Once good bleeding endplates accomplished and good height yazidism with trials, a combination of autograft, allograft and synthetic placed anterior in the disc space. The cage was then selected and impacted into place under lateral imaging. The cage was then expanded restoring height, lordosis and alignment. The cage was backfilled with bone graft through a funnel. The career services manager was removed and the area inspected. Good cage placement, stable cage and no injuries. Area was irrigated copiously, and meticulous hemostasis achieved. The wound and disc spaces were irrigated and meticulous hemostasis achieved. Rods were then sized and selected and placed into S1 screws b/l. Set screws locked these in place and then sequentially reduced into L4 and L5 b/l for alignment yazidism. This was accomplished. Set screws were then all placed and final tightened. A cross link was selected and placed and final tightened. TPs were then decorticated with a high speed brent. The wound was irrigated with 3L Ancef irrigation, 3L gentamicin irrigation and 3L NSS. Surgery was placed ov er the dura. Autograft and MagnatOs then placed in the posterolateral gutters and impacted into place. Deep drain placed and secured to the skin. Final images confirmed good placement of hardware and good reduction of listhesis as well as yazidism of height and lordosis. Fascia was then closed with #1 PDS. Deep subq closed with 0 Vicryl. Superficial subq closed with 2-0 Vicryl and skin with yolanda. Wound edges approximated very well. Wound was then cleaned with alcohol and dried. Wounds dressed with adaptic, 4x4, ABD and medipore tape. The patient was then transferred off the table back to their hospital bed a- traumatically. They were extubated by the department of anesthesia. They were then transferred to PACU in stable condition having tolerated the procedure with no complications.
[2024-05-01] MEDS ORDERED: MAGNESIUM HYDROXIDE 2,400 MG/30 ML CUP PO PRN (11:21)
[2024-05-01] MEDS ORDERED: NA PHOS,M-B/NA PHOS,DI-BA 133 ML ENEMA RECTAL PRN (11:21)
[2024-05-01] MEDS ORDERED: HYDROmorphone 2 MG/ML 1 ML SYRINGE IVP PRN (11:21)
[2024-05-01] MEDS ORDERED: bisacodyL 10 MG SUPP RECTAL PRN (11:21)
--- NOTE | 2024-05-01 11:21 | XR ---
Intraoperative/procedural fluoroscopic services were provided for lumbar fusion. Total fluoroscopy ti me is 33.6 seconds with a total of 6 submitted images to PACS. Total DAP 5.2215 Gycm2. Please see th e operative note for further details. [facility], , 05/01/2024 11:18 AM
[2024-05-01] MEDS ORDERED: HYDROcodone/APAP 7.5-325MG 1 EACH TAB PO PRN (11:25)
[2024-05-01] MEDS: PHENYLEPHRINE 10 MG/ML VIAL IV ONE ×2 (11:43→11:53)
[2024-05-01] MEDS: ALBUMIN HUMAN 5% 250 ML in EMPTY BAG 1 BAG IVPB STA (11:50)
[2024-05-01] MEDS: droPERidol 5 MG/2 ML VIAL IVP ONE (14:03)
[2024-05-01] MEDS: GENTAMICIN 80 MG in SODIUM CHLORIDE 0.9% IRRIGATIO 3,000 ML IRRIGATION ONE (14:06)
[2024-05-01] MEDS: PHENYLEPHRINE 40 MG in SODIUM CHLORIDE 0.9% 250 ML IV SCH (16:37)
[2024-05-01] MEDS ORDERED: ACETAMINOPHEN TAB 500 MG TAB PO PRN (17:10)
[2024-05-01] MEDS: GABAPENTIN 300 MG CAP PO SCH (17:44)
[2024-05-01] MEDS: ACETAMINOPHEN TAB 325 MG TAB PO SCH (17:44)
[2024-05-01] MEDS: 0.9% NACL WITH KCL 20 MEQ/L 1,000 ML IV SCH (17:45)
[2024-05-01] MEDS: IPRATROPIUM-ALBUTEROL 3 ML NEB INHALATION SCH (21:52)
[2024-05-01] MEDS ORDERED: GABAPENTIN 300 MG CAP PO SCH (22:00)
[2024-05-01] MEDS: HYDROcodone/APAP 10-325MG 1 EACH TAB PO PRN (22:42)
--- NOTE | 2024-05-02 01:57 | CONS ---
CONSULTATION HISTORY OF PRESENT ILLNESS: A 78-year-old white female, status post lumbar surgery. She is weak, fatigued. She got oxygen on. She is relying on breathing treatments. Medicines were reordered. PHYSICAL EXAMINATION: CARDIOVASCULAR: S1, S2. LUNGS: Transmitted upper sounds. Scattered wheeze. HEMATOLOGY: Negative Homans. PSYCH: Fair mood and affect. NEUROLOGIC: Alert and oriented x3. INTEGUMENT: No rash, excoriation, or bruising. PSYCH: Fair mood and affect. ASSESSMENT: Status post lumbar surgery, hypertension, chronic obstructive pulmonary disease. Medications have been ordered. Continue oxygen, breathing treatments. Prognosis guarded. Ambulate as tolerated. Home medications were reordered. Please see further orders. We will check out in the morning. She feels better with her legs in general. MMODL / IJN: [id number] /
--- NOTE | 2024-05-02 08:17 | P.PN ---
Subjective Progress Note Date: 05/02/24 Principal diagnosis: 1. L4-S1 spondylosis with stenosis severe and neurogenic claudication 2. L4-5 Grade 1 spondylolisthesis, unstable. 3. 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 Grade 1 retrolitheisis L1-L2 5.Bilateral lower extremity radiculopathy Patient seen and examined this morning. Patient is resting comfortable in bed. Patient has not been up since procedure. She does report that her pain is being managed on current regimen. Informed patient that physical therapy and occupational therapy will begin to work with her today. Patient's LSO brace is at bedside and she states that she has a walker at home. Surgical incision to the lumbar spine is clean dry and intact with Hemovac present. Continue to encourage patient to be up in chair for all meals and use of incentive spirometer 10 times per hour while awake. No acute concerns at this time. Objective - Vital Signs Vital signs: Vital Signs Temp 99.2 F 05/02/24 02:00 Pulse 76 05/02/24 02:00 Resp 14 05/02/24 02:00 BP 107/67 05/02/24 02:00 Pulse Ox 95 05/02/24 02:00 FiO2 Intake & Output 05/01/24 05/02/24 05/02/24 18:59 06:59 18:59 Intake Total 4152 50 Output Total 1110 650 Balance 3042 -600 Weight 70.3 kg Intake: IV 4152 Intake, IV Titration 50 Amount ceFAZolin 2 gm In Sodium 50 Chloride 0.9% 50 ml @ 100 mls/hr IVPB Q8H [facility] Rx#: [id number] Output: Drainage 50 Right Back 50 Urine 570 600 Estimated Blood Loss 540 Other: Voiding Method Indwelling Catheter - Exam Physical Examination General: The patient is awake and alert, in no acute distress Skin: Skin is warm and dry with no obvious rashes or lesions. Surgical incision to the lumbar spine, dressing is clean dry and intact with Hemovac present. Eye: Pupils are equal, round and reactive to light, extra-ocular movements are intact; there is normal conjunctiva bilaterally. Neck: The neck is supple, there is no tenderness and ROM intact. Cardiovascular: There is a regular rate and rhythm. No murmur, rub or gallop is appreciated. Respiratory: Lungs are clear to auscultation, respirations are non-labored, breath sounds are equal. Gastrointestinal: Soft, non-distended, non-tender abdomen. Back: There is no tenderness to palpation in the midline, paralumbar, parathoracic or buttocks region. There is no obvious deformity . Musculoskeletal: ROM limited secondary to pain and stiffness from surgical procedure. Muscle strength in all major muscle groups of bilateral upper extremities 5/5, bilateral lower extremities 4/5. Neurological: CN 2-12 intact. There are no obvious motor or sensory deficits. Movement and coordination equal and intact. Sensory exam to light touch intact C5-T1 and intact from L2-S1. Reflexes 2/4 in bilateral upper and lower extremities. Negative Hoffmans, babinski, and clonus signs. Psychiatric: Cooperative, appropriate mood & affect, normal judgment. Assessment and Plan Assessment: Postoperative day 1: L4-S1 open Decompression and fusion Plan: -Appreciate application packaging consultant and team management. -Activity: Ambulate QID, OOB all meals, up and about, limit lifting bending twisting to less than 5 lbs. Use walker or cane if needed for stability. -Daily PT/OT, increase ambulation strength and balance. -Brace when up and about, not needed in bed or chair -Pain control: Adequate at this time -Meds: reviewed -GI ppx: senna, Miralax -DC curtis when up and about, bedside commode if needed -DVT PPX: Aspirin 81mg -Hygiene: Maintain dressing clean and dry. Meticulous cleaning after BMs away from the incision site -Drains: Maintain for now. Continue to monitor and record output q shift. -Encourage IS 10x/hr -Dispo: Anticipate discharge home with homecare in the next 48hrs *I reviewed and discussed this case with my attending Dr. Smith, whom has reviewed this chart and films and is in agreement with assessment and plan of care as outlined above. I have personally seen and examined the patient, performed the documentation and the assessment and plan as written. Number of minutes spent on the visit: 20m.
[2024-05-02 08:30] LABS: Basophils # (A) 0.03 X 10*3/uL (0.00-0.10); Basophils % (A) 0.2 %; Eosinophils # (A) 0 X 10*3/uL (0.04-0.35); Eosinophils % (A) 0 %; HCT 26.6 % (37.2-46.3); HGB 8.5 g/dL (12.0-15.0); Lymphocytes # (A) 0.89 X 10*3/uL (0.90-5.00); Lymphocytes % (A) 5.3 %; MCH 29.7 pg (27.0-32.0); Mean Platelet Volume 10.8 FL (9.5-12.2); Monocytes # (A) 1.28 X 10*3/uL (0.20-1.00); Monocytes % (A) 7.6 %; NRBC Per 100 WBC 0 X 10*3/uL (0.00-0.01); Neutrophils % (A) 86.3 %; Platelet Count 182 X 10*3/uL (140-440); RBC 2.86 X 10*6/uL (4.10-5.20); RDW 12.9 % (11.5-14.5)
[2024-05-02 08:41] LABS: ALT 15 U/L (8-44); AST 21 U/L (13-35); Albumin 3.3 g/dL (3.8-4.9); Albumin/Globulin Ratio 2.36 Ratio (1.60-3.17); Alkaline Phosphatase 38 U/L (41-126); BUN/Creat Ratio 23.71 Ratio (12.00-20.00); Blood Urea Nitrogen 16.6 mg/dL (9.0-27.0); Calcium 8.3 mg/dL (8.7-10.3); Carbon Dioxide 26.1 mmol/L (21.6-31.8); Chloride 107 mmol/L (96-109); Globulin 1.4 g/dL (1.6-3.3); Glucose 122 mg/dL (70-110); Potassium 4.2 mmol/L (3.5-5.5); Sodium 140 mmol/L (135-145); Total Bilirubin 0.4 mg/dL (0.3-1.2); Total Protein 4.7 g/dL (6.2-8.2)
[2024-05-02] MEDS ORDERED: ASPIRIN 81 MG PO SCH (09:00)
[2024-05-02] MEDS ORDERED: NON FORMULARY DRUG (Omega-3/Dha/Epa/Fish Oil [Fish Oil 1,000 Mg Softgel] 1 EACH Capsule) PO SCH (09:00)
[2024-05-02] MEDS ORDERED: NON FORMULARY DRUG (Turmeric Root Extract [Turmeric] 500 MG Tablet) PO SCH (09:00)
--- NOTE | 2024-05-02 09:15 | CT ---
EXAMINATION TYPE: CT lumbar spine wo con DATE OF EXAM: 05/02/2024 8:44 AM COMPARISON: 02/08/2024 CLINICAL INDICATION: Female, 78 years old with history of s/p lumbar fusion; PHH, S/P Lumbar fusion TECHNIQUE: Unenhanced CT of the lumbar spine was performed. Bone and soft tissue window settings are submitted as well as coronal and sagittal reconstructions. CT DLP: 1041.[address] CTDI: mGy Automated exposure control for dose reduction was used. FINDINGS: Generalized demineralization with vacuum disc at all levels and severe degenerative disc disease. Gra de 1 retrolisthesis L3-L4 and grade 1 anterolisthesis L4-L5. L1-L2: Severe degenerative disc disease with discogenic marrow changes. Circumferential disc bulging. Mild foraminal encroachment. L2-L3: Severe degenerative disc disease with vacuum disc. Posterior spondylosis. Circumferential disc bulging with borderline central stenosis and mild bilateral foraminal encroachment. L3-L4: Vacuum disc with diffuse disc bulging, ligamentum flavum hypertrophy and grade 1 retrolisthesi s. There is facet arthropathy and moderate canal stenosis. Mild bilateral foraminal encroachment. L4-L5: Surgical changes with artifact resulting in nondiagnostic assessment. L5-S1: Postsurgical changes with artifact resulting in nondiagnostic assessment. Diverticulosis of the colon. Atherosclerotic change of the aorta. Subcutaneous air is seen posteriorl y likely postsurgical correlate clinically to exclude infectious etiology. Small amount of nondescrip t subcutaneous edema is seen. Surgical drain is seen in the soft tissues as well as a surgical staple line. Trace amount of fluid is seen in the pelvis. Vacuum changes in the SI joint compatible with ar thropathy. Trace amount of air is seen in the posterior spinal canal at the level of L4-L5. IMPRESSION: 1. Postsurgical changes with diagnostic assessment of the spinal canal at the surgical levels due to' s extreme artifact. There is a grade 1 anterolisthesis L4-L5. 2. Subcutaneous air and small amount of fluid is nonspecific but most likely postsurgical given the p atient is recently postoperative. 3. Multilevel severe degenerative disc disease with vacuum disc at virtually all levels.. 4. Moderate canal stenosis due to disc bulging or protrusion and hypertrophic changes and ligamentum flavum L3-L4. [facility], , 05/02/2024 9:12 AM
[2024-05-02] MEDS: ASPIRIN 81 MG PO SCH (10:04)
[2024-05-02] MEDS: SENNOSIDES-DOCUSATE SODIUM 1 EACH TAB PO SCH (10:05)
[2024-05-02] MEDS: CHOLECALCIFEROL 25 MCG (1000 IU) TABLET PO SCH (10:05)
[2024-05-02] MEDS: CYANOCOBALAMIN 500 MCG TAB PO SCH (10:05)
[2024-05-02] MEDS: CYCLOBENZAPRINE 5 MG TAB PO PRN (10:07)
[2024-05-02] MEDS: LOSARTAN 50 MG TAB PO SCH (10:07)
[2024-05-02] MEDS: polyethylene glycoL 3350 17 GM POWD.PACK PO SCH (10:07)
[2024-05-02] MEDS: ONDANSETRON 4 MG/2 ML VIAL IVP PRN (11:55)
[2024-05-03] MEDS: HYDROcodone/APAP 5-325MG 1 EACH TAB PO PRN (00:01)
[2024-05-03 03:07] VITALS: TEMP 98.6
[2024-05-03 07:27] VITALS: BP 124/76; PULSE 86; RESP 14
--- NOTE | 2024-05-03 09:47 | P.DS ---
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 Smith Surgical procedures: L4-S1 open decompression and fusion Brief history: Patient is a 78-year-old female with a history of L4-S1 spondylosis with stenosis and severe neurogenic claudication; L4-5 grade 1 spinal listhesis; L1-2 paracentral herniated nucleus pulposus with stenosis; grade 1 retrolisthesis L1-L2; bilateral lower extremity radiculopathy at this point patient has failed conservative treatment measures and has opted to proceed with a elective L4-S1 open decompression and fusion. Hospital course: Details of patient's surgery can be found in operative report. Patient tolerated the procedure well and was subsequently transported to [facility] floor. Patient's orthopeidc and medical care was provided daily. Patient had daily laboratory tests performed for evaluation of overall blood counts. Patient had daily physical therapy to include strengthening range of motion as well as education with walker ambulation. Patient was treated with aspirin for their postoperative DVT prophylaxis during their inpatient stay. Patient was noted to have a relatively uneventful postoperative course. Patient reported satisfactory pain control with oral pain medications by postoperative day 2. Patient showed satisfactory progress with physical therapy. Patient moved steadily through the program and had no difficulty meeting the goals by postoperative day 2. Given patient's otherwise satisfactory course and having met physical therapy goals, plan is to discharge patient home with home care on postoperative day 2. Discharge condition/disposition: Patient will be discharged home with home care in stable condition. Discharge medications: Instructions are given on resumption of patient's normal daily medications per primary care recommendation, in addition patient will be prescribed Orland; Flexeril; senna; Zofran; Duricef; aspirin 81 mg twice daily. Spine Discharge and Recovery Instructions Date of Surgery: 05/01/2024 Diagnosis: 1. L4-S1 spondylosis with stenosis severe and neurogenic claudication 2. L4-5 Grade 1 spondylolisthesis, unstable. 3. 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 Grade 1 retrolitheisis L1-L2 5.Bilateral lower extremity radiculopathy Procedure: L4-S1 open decompression and fusion Medications: See medication list All medication refills should be obtained through your primary care doctor or your clinic spine surgeon. Please discuss prescription refills at your follow up appointment. Do not call the hospital for medication refills. Dressing: Leave your dressing in place for a total of 5 days post operatively. Then you may remove your dressing and leave open to air. Keep the area clean and if not able to keep area clean, then cover with sterile gauze and tape. Showering: You may shower 3 days after your procedure allowing soap and water to run over incision. Do not scrub. Do not soak. Blot dry. Follow up: Please confirm a follow up appointment with your surgeon 3 weeks post operatively. Please make an appointment to follow up with your PCP in 1-2 weeks after surgery for evaluation '3 phase, 3-week plan' POST OP WEEKS 1-3 1. Lifting/carrying/pushing/pulling limited to less than 5 pounds. 2. Do not sit for longer than 15 minutes at one time. Get up and walk around. Prolonged sitting is NOT advised. If you lay down, see if you can tolerate laying down on you front (belly side) 3. Walk for periods of 15 minutes = 1 mile but no longer; do it multiple times times each day. 4. Ice your low back after activity. POST OP WEEKS 3-6 1. Lifting limited to less than 20 pounds. 2. Do not sit for longer than 30 minutes at a time. Frequently change positions. Use a sit-to stand workstation or take frequent breaks from sitting if you have returned to work. 3. Walk for 30 minutes each day. If possible, do these three or more times a day POST OP WEEKS 6+ At your 6-week appointment we will give you a physical therapy referral to focus on a core stabilization and strengthening program. You should also work on leg & buttock strengthening, hamstring & quadriceps stretching, and continue a low impact aerobic activity program such as swimming, walking, or riding a stationary bicycle. During the initial 6 weeks after your surgery, you are at the highest risk of re-injuring your spine. You should generally avoid BLT's (bending, lifting and twisting combination motions) and follow the above guidelines to reduce the chance of reinjury. You can anticipate post op appointments in our office at approximately 3 weeks and 6 weeks after your surgery. INCISION CARE: If your incision is not draining you do NOT need to cover it with a dressing. Keep your incision clean, dry and intact. In most cases, we apply skin glue, yolanda or sutures to the incision at the time of surgery. This will be like a crust or have the appearance of a scab and will fall off in time on its own. The stitches or yolanda need to be removed at 3 weeks post op appointment. You may begin to shower 3 days after surgery (this allows the glue to hunter well). However, please avoid scrubbing the incision site or peeling off any of the skin glue. This will ensure optimal healing of your incision. Also, during this time avoid soaking the incision area in water - this includes swimming pools, hot tubs or baths. No ointments, lotions or oils on the incision until your surgeon allows. Leave yolanda, sutures or glue in place. Neurological dysfunction that comes on suddenly can also be a sign of a stroke. Below some common symptoms of a stroke are listed: B - balance difficulty such as sudden onset walking or leaning to one side - NEW E - eye problem such as sudden double vision or trouble seeing on one side - NEW F - Facial weakness or numbness on one side - NEW A - Arm or leg weakness or numbness on one side - NEW S - Slurred speech or difficulty with word finding - NEW T - Time is BRAIN! Call 911 as soon as you recognize these symptoms Diet: Consume a regular diet rich in vegetables and lean protein such as chicken or fish. You should consume in a ratio of approximately 20% fats|40% carbohydrates|40%protein. Vegetables, sweet potatoes, brown rice or quinoa are examples of good carbohydrates. Chips, white bread, cookies and sweets/sugar are examples of bad carbohydrates. Limit your bad carbs, go wild with good carbs. "Life's Simple 7" Guidelines as per [place] [employer] These will help you reclaim your life after surgery and helper coordinator in your recovery, keeping in mind your restrictions. (1) Get Active. Physical activity can help people lose weight, control high blood pressure and cholesterol, feel emotionally better, and sleep better. (2) Control Cholesterol. Avoid a diet high in saturated fat, trans fat, & cholesterol. Limit whole milk & cream, ice cream, butter, egg yolks, processed meats (like sausage and hot dogs), and fatty meats. Choose healthy foods that are low in saturated fat, trans fat and cholesterol which include: Fruits and vegetables, fiber rich grain products (like whole grain pasta and brown rice), lean meat such as chicken, fish, nuts, seeds, and legumes. (3) Eat Better. Eat small portions. Shop at the grocery with a list and do not stray from it. Tips for a healthy diet include: Limit sodium intake to less than 1500mg daily, avoid prepackaged, processed, and fast foods, choose a diet rich in fruits, vegetables, and whole grain, high fiber foods, and limit saturated & cholesterol in your diet. (4) Manage Blood Pressure. If you have high blood pressure, you should have a cuff at home so that you can check your blood pressure regularly. Be sure you have a good cuff. An arm one is generally better than a wrist one. Bring the cuff to a doctor's appointment to validate that the measurements that your cuff are taking are accurate. Take your blood pressure twice daily when you are sitting down and relaxing. Record the numbers in a log and bring this log with you to your doctors' appointments. (5) Lose Weight if your BMI is above 25. A healthy BMI is between 19-25. To calculate Your BMI, you may use a Standard BMI Calculator on the NIH BMI website: <www.nhlbi.nih.gov/guidelines/obesity/BMI/bmicalc.htm>. Weigh oneself daily. If you are overweight, set a goal to lose weight. A pound a week loss if needed is a good target. (6) Reduce Blood Sugar. Limit foods and liquids with "added sugars." (Added sugars include sucrose, fructose, glucose, maltose, dextrose, high fructose corn syrup, corn syrup, concentrated fruit juice and honey). (7) Stop Smoking. If you smoke, quitting smoking is one of the best things that you can do for your health. Smoking increases your risk of heart attack, stroke, and peripheral vascular disease, which is a build-up of plaque in your arteries. Please discard all the cigarettes and lighters in your house. Have a plan for what you will do when you have the urge to smoke. Direct and second- hand smoke shortens your life as well as the lives of your family, friends and others around you. For your health and the health of those around you, please consider quitting! Proper Bending Body Mechanics: Maintain a wide stance with one foot slightly in front of the other. Keep your back straight. Bend utilizing the strength in your hips and knees. Do not bend at the waist. Maintain the lifted object at your waist-level close to your body. Avoid lifting weight that causes immediately pain or pain anywhere in the body afterwards. Smoking/Nicotine If there was ever one thing that you could do to increase your overall health, decrease your risk of cardiovascular problems by about 39% the second you make the choice, it is to STOP SMOKING. Your body's most instant gratification is the second you stop smoking. We have all heard the studies, read the articles but it is true, smoking is extremely bad for your overall health, and moreover it is detrimental to your bone health. Nicotine, IN ANY FORM, kills bone cells, prevents your body from healing fractures, and significantly prolongs healing after surgery. In spine surgery specifically, it increases your risk of not healing your bones to create a fusion and increases your risk of having a revision surgery due to this up to 60%. I know it is hard. I know it feels impossible. But there are ways. Take control of your life. We are here to help you through it. And when you are ready, ask us and we can direct you to help if you desire. Use the START Plan to Quit Smoking (please visit the [employer]guField[employer].org website listed below for more information): S = Set a quit date. Choose a date within the next 2 weeks, so you have enough time to prepare without losing your motivation to quit. If you mainly smoke at work, quit on the weekend, so you have a few days to adjust to the change. T = Tell family, friends, and co-workers that you plan to quit. Let your friends and family in on your plan to quit smoking and tell them you need their support and encouragement to stop. Look for a quit latrice who wants to stop smoking as well. You can help each other get through the rough times. A = Anticipate and plan for the challenges you'll face while quitting. Most people who begin smoking again do so within the first 3 months. You can help yourself make it through by preparing ahead for common challenges, such as nicotine withdrawal and cigarette cravings. R = Remove cigarettes and other tobacco products from your home, car, and work. Throw away all your cigarettes (no emergency pack!), lighters, ashtrays, and matches. Wash your clothes and freshen up anything that smells like smoke. Shampoo your car, clean your drapes and carpet, and steam your furniture. T = Talk to your doctor about getting help to quit. Your doctor can prescribe medication to help with withdrawal and suggest other alternatives. If you can't see a doctor, you can get many products over the counter at your local pharmacy or grocery store, including the nicotine patch, nicotine lozenges, and nicotine gum. Resources for Quitting Smoking: <https://www.[place].gov/documents/[facility]/Quit_Tobacco_Resources_for_patients_313 480_7.pdf> Supplementation: Take recommended dosages of Vitamin D and Calcium to help fortify your bones and help them to heal. See your health maintenance packet for dosages and recommended levels. DVT/VTE prophylaxis: You will be given compression stockings from the hospital. Wear these daily for the first two weeks after surgery. You may take them off at night. You may be prescribed a medication to help thin your blood. Take this as directed. If you are not prescribed this medication, early and frequent ambulation has been shown to be the best prophylaxis to deep vein thrombosis and sequelae related to this event. Assessment: 1. L4-S1 spondylosis with stenosis severe and neurogenic claudication 2. L4-5 Grade 1 spondylolisthesis, unstable. 3. 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 Grade 1 retrolitheisis L1-L2 5.Bilateral lower extremity radiculopathy Procedures: L4-S1 open Decompression and fusion Patient Condition at Discharge: Good Plan - Discharge Summary Discharge Rx Participant: Yes New Discharge Prescriptions: New Aspirin [Adult Low Dose Aspirin EC] 81 mg PO BID #60 tab cefaDROXiL [Duricef] 500 mg PO Q12HR 5 Days #10 cap Cyclobenzaprine [Flexeril] 5 mg PO TID #21 tablet HYDROcodone/APAP 7.5-325MG [Orland 7.5-325] 1 tab PO Q6HR PRN #28 tab PRN Reason: Pain Sennosides/Docusate Sodium [Senna Plus 8.6-50 mg Softgel] 1 each PO DAILY #20 capsule Ondansetron [Zofran] 4 mg PO Q12HR PRN #8 tab PRN Reason: Nausea Continue Gabapentin [Neurontin] 600 mg PO TID No Action Losartan Potassium [Cozaar] 100 mg PO DAILY Aspirin 81 mg PO DAILY Cholecalciferol [Vitamin D3 (25 Mcg = 1000 Iu)] 25 mcg PO DAILY Turmeric Root Extract [Turmeric] 500 mg PO DAILY Budesonide/Glycopyr/Formoterol [Breztri Aerosphere Inhaler] 2 puff INHALATION BID Grubbs-3/Dha/Epa/Fish Oil [Fish Oil 1,000 mg Softgel] 1 each PO DAILY Acetaminophen [Tylenol Extra Strength] 500 mg PO Q6H PRN PRN Reason: Pain Calcium Carbonate/Vitamin D3 [Caltrate 600 Plus D3 20 Mcg (800 Iu)] 1 each PO BID Alendronate Sodium [Fosamax] 70 mg PO CERVANTES Cyanocobalamin (Vitamin B-12) [Vitamin B-12] 1,000 mcg PO DAILY Meloxicam [Mobic] 7.5 mg PO DAILY 30 Days #30 tab Discharge Medication List Alendronate Sodium [Fosamax] 70 mg PO CERVANTES 07/08/21 [History] Aspirin 81 mg PO DAILY 07/08/21 [History] Calcium Carbonate/Vitamin D3 [Caltrate 600 Plus D3 20 Mcg (800 Iu)] 1 each PO BID 07/08/21 [History] Losartan Potassium [Cozaar] 100 mg PO DAILY 07/08/21 [History] Cholecalciferol [Vitamin D3 (25 Mcg = 1000 Iu)] 25 mcg PO DAILY 03/21/23 [H istory] Cyanocobalamin (Vitamin B-12) [Vitamin B-12] 1,000 mcg PO DAILY 03/21/23 [History] Gabapentin [Neurontin] 600 mg PO TID 03/21/23 [History] Turmeric Root Extract [Turmeric] 500 mg PO DAILY 03/21/23 [History] Budesonide/Glycopyr/Formoterol [Breztri Aerosphere Inhaler] 2 puff INHALATION BID 10/20/23 [History] Meloxicam [Mobic] 7.5 mg PO DAILY 30 Days #30 tab 12/08/23 [Rx] Acetaminophen [Tylenol Extra Strength] 500 mg PO Q6H PRN 04/26/24 [History] Grubbs-3/Dha/Epa/Fish Oil [Fish Oil 1,000 mg Softgel] 1 each PO DAILY 04/26/24 [History] Aspirin [Adult Low Dose Aspirin EC] 81 mg PO BID #60 tab 05/03/24 [Rx] Cyclobenzaprine [Flexeril] 5 mg PO TID #21 tablet 05/03/24 [Rx] HYDROcodone/APAP 7.5-325MG [Orland 7.5-325] 1 tab PO Q6HR PRN #28 tab 05/03/24 [Rx] Ondansetron [Zofran] 4 mg PO Q12HR PRN #8 tab 05/03/24 [Rx] Sennosides/Docusate Sodium [Senna Plus 8.6-50 mg Softgel] 1 each PO DAILY #20 capsule 05/03/24 [Rx] cefaDROXiL [Duricef] 500 mg PO Q12HR 5 Days #10 cap 05/03/24 [Rx] Follow up Appointment(s)/Referral(s): [facility] [NON-STAFF] - As Needed (*Residential home care staff will contact you after discharge to schedule your home health services) Terry Smith DO [Doctor of Osteopathic Medicine] - 05/18/24 10:15 am Activity/Diet/Wound Care/Special Instructions: Spine Discharge and Recovery Instructions Date of Surgery: 05/01/2024 Diagnosis: 1. L4-S1 spondylosis with stenosis severe and neurogenic claudication 2. L4-5 Grade 1 spondylolisthesis, unstable. 3. 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 Grade 1 retrolitheisis L1-L2 5.Bilateral lower extremity radiculopathy Procedure: L4-S1 open decompression and fusion Medications: See medication list All medication refills should be obtained through your primary care doctor or your clinic spine surgeon. Please discuss prescription refills at your follow up appointment. Do not call the hospital for medication refills. Dressing: Leave your dressing in place for a total of 5 days post operatively. Then you may remove your dressing and leave open to air. Keep the area clean and if not able to keep area clean, then cover with sterile gauze and tape. Showering: You may shower 3 days after your procedure allowing soap and water to run over incision. Do not scrub. Do not soak. Blot dry. Follow up: Please confirm a follow up appointment with your surgeon 3 weeks post operatively. Please make an appointment to follow up with your PCP in 1-2 weeks after surgery for evaluation '3 phase, 3-week plan' POST OP WEEKS 1-3 1. Lifting/carrying/pushing/pulling limited to less than 5 pounds. 2. Do not sit for longer than 15 minutes at one time. Get up and walk around. Prolonged sitting is NOT advised. If you lay down, see if you can tolerate laying down on you front (belly side) 3. Walk for periods of 15 minutes = 1 mile but no longer; do it multiple times times each day. 4. Ice your low back after activity. POST OP WEEKS 3-6 1. Lifting limited to less than 20 pounds. 2. Do not sit for longer than 30 minutes at a time. Frequently change positions. Use a sit-to stand workstation or take frequent breaks from sitting if you have returned to work. 3. Walk for 30 minutes each day. If possible, do these three or more times a day POST OP WEEKS 6+ At your 6-week appointment we will give you a physical therapy referral to focus on a core stabilization and strengthening program. You should also work on leg & buttock strengthening, hamstring & quadriceps stretching, and continue a low impact aerobic activity program such as swimming, walking, or riding a stationary bicycle. During the initial 6 weeks after your surgery, you are at the highest risk of re-injuring your spine. You should generally avoid BLT's (bending, lifting and twisting combination motions) and follow the above guidelines to reduce the chance of reinjury. You can anticipate post op appointments in our office at approximately 3 weeks and 6 weeks after your surgery. INCISION CARE: If your incision is not draining you do NOT need to cover it with a dressing. Keep your incision clean, dry and intact. In most cases, we apply skin glue, yolanda or sutures to the incision at the time of surgery. This will be like a crust or have the appearance of a scab and will fall off in time on its own. The stitches or yolanda need to be removed at 3 weeks post op appointment. You may begin to shower 3 days after surgery (this allows the glue to hunter well). However, please avoid scrubbing the incision site or peeling off any of the skin glue. This will ensure optimal healing of your incision. Also, during this time avoid soaking the incision area in water - this includes swimming pools, hot tubs or baths. No ointments, lotions or oils on the incision until your surgeon allows. Leave yolanda, sutures or glue in place. Neurological dysfunction that comes on suddenly can also be a sign of a stroke. Below some common symptoms of a stroke are listed: B - balance difficulty such as sudden onset walking or leaning to one side - NEW E - eye problem such as sudden double vision or trouble seeing on one side - NEW F - Facial weakness or numbness on one side - NEW A - Arm or leg weakness or numbness on one side - NEW S - Slurred speech or difficulty with word finding - NEW T - Time is BRAIN! Call 911 as soon as you recognize these symptoms Diet: Consume a regular diet rich in vegetables and lean protein such as chicken or fish. You should consume in a ratio of approximately 20% fats|40% carbohydrates|40%protein. Vegetables, sweet potatoes, brown rice or quinoa are examples of good carbohydrates. Chips, white bread, cookies and sweets/sugar are examples of bad carbohydrates. Limit your bad carbs, go wild with good carbs. "Life's Simple 7" Guidelines as per [place] [employer] These will help you reclaim your life after surgery and helper coordinator in your recovery, keeping in mind your restrictions. (1) Get Active. Physical activity can help people lose weight, control high blood pressure and cholesterol, feel emotionally better, and sleep better. (2) Control Cholesterol. Avoid a diet high in saturated fat, trans fat, & cholesterol. Limit whole milk & cream, ice cream, butter, egg yolks, processed meats (like sausage and hot dogs), and fatty meats. Choose healthy foods that are low in saturated fat, trans fat and cholesterol which include: Fruits and vegetables, fiber rich grain products (like whole grain pasta and brown rice), lean meat such as chicken, fish, nuts, seeds, and legumes. (3) Eat Better. Eat small portions. Shop at the grocery with a list and do not stray from it. Tips for a healthy diet include: Limit sodium intake to less than 1500mg daily, avoid prepackaged, processed, and fast foods, choose a diet rich in fruits, vegetables, and whole grain, high fiber foods, and limit saturated & cholesterol in your diet. (4) Manage Blood Pressure. If you have high blood pressure, you should have a cuff at home so that you can check your blood pressure regularly. Be sure you have a good cuff. An arm one is generally better than a wrist one. Bring the cuff to a doctor's appointment to validate that the measurements that your cuff are taking are accurate. Take your blood pressure twice daily when you are sitting down and relaxing. Record the numbers in a log and bring this log with you to your doctors' appointments. (5) Lose Weight if your BMI is above 25. A healthy BMI is between 19-25. To calculate Your BMI, you may use a Standard BMI Calculator on the NIH BMI website: <www.nhlbi.nih.gov/guidelines/obesity/BMI/bmicalc.htm>. Weigh oneself daily. If you are overweight, set a goal to lose weight. A pound a week loss if needed is a good target. (6) Reduce Blood Sugar. Limit foods and liquids with "added sugars." (Added sugars include sucrose, fructose, glucose, maltose, dextrose, high fructose corn syrup, corn syrup, concentrated fruit juice and honey). (7) Stop Smoking. If you smoke, quitting smoking is one of the best things that you can do for your health. Smoking increases your risk of heart attack, stroke, and peripheral vascular disease, which is a build-up of plaque in your arteries. Please discard all the cigarettes and lighters in your house. Have a plan for what you will do when you have the urge to smoke. Direct and second- hand smoke shortens your life as well as the lives of your family, friends and others around you. For your health and the health of those around you, please consider quitting! Proper Bending Body Mechanics: Maintain a wide stance with one foot slightly in front of the other. Keep your back straight. Bend utilizing the strength in your hips and knees. Do not bend at the waist. Maintain the lifted object at your waist-level close to your body. Avoid lifting weight that causes immediately pain or pain anywhere in the body afterwards. Smoking/Nicotine If there was ever one thing that you could do to increase your overall health, decrease your risk of cardiovascular problems by about 39% the second you make the choice, it is to STOP SMOKING. Your body's most instant gratification is the second you stop smoking. We have all heard the studies, read the articles but it is true, smoking is extremely bad for your overall health, and moreover it is detrimental to your bone health. Nicotine, IN ANY FORM, kills bone cells, prevents your body from healing fractures, and significantly prolongs healing after surgery. In spine surgery specifically, it increases your risk of not healing your bones to create a fusion and increases your risk of having a revision surgery due to this up to 60%. I know it is hard. I know it feels impossible. But there are ways. Take control of your life. We are here to help you through it. And when you are ready, ask us and we can direct you to help if you desire. Use the START Plan to Quit Smoking (please visit the Helpguide.org website listed below for more information): S = Set a quit date. Choose a date within the next 2 weeks, so you have enough time to prepare without losing your motivation to quit. If you mainly smoke at work, quit on the weekend, so you have a few days to adjust to the change. T = Tell family, friends, and co-workers that you plan to quit. Let your friends and family in on your plan to quit smoking and tell them you need their support and encouragement to stop. Look for a quit latrice who wants to stop smoking as well. You can help each other get through the rough times. A = Anticipate and plan for the challenges you'll face while quitting. Most people who begin smoking again do so within the first 3 months. You can help yourself make it through by preparing ahead for common challenges, such as nicotine withdrawal and cigarette cravings. R = Remove cigarettes and other tobacco products from your home, car, and work. Throw away all your cigarettes (no emergency pack!), lighters, ashtrays, and matches. Wash your clothes and freshen up anything that smells like smoke. Shampoo your car, clean your drapes and carpet, and steam your furniture. T = Talk to your doctor about getting help to quit. Your doctor can prescribe medication to help with withdrawal and suggest other alternatives. If you can't see a doctor, you can get many products over the counter at your local pharmacy or grocery store, including the nicotine patch, nicotine lozenges, and nicotine gum. Resources for Quitting Smoking: <https://www.[place].gov/documents/[facility]/Quit_Tobacco_Resources_for_patients_313 480_7.pdf> Supplementation: Take recommended dosages of Vitamin D and Calcium to help fortify your bones and help them to heal. See your health maintenance packet for dosages and recommended levels. DVT/VTE prophylaxis: You will be given compression stockings from the hospital. Wear these daily for the first two weeks after surgery. You may take them off at night. You may be prescribed a medication to help thin your blood. Take this as directed. If you are not prescribed this medication, early and frequent ambulation has been shown to be the best prophylaxis to deep vein thrombosis and sequelae related to this event. Discharge Disposition: HOME SELF-CARE
--- NOTE | 2024-05-03 09:51 | P.PN ---
Subjective Progress Note Date: 05/03/24 Principal diagnosis: 1. L4-S1 spondylosis with stenosis severe and neurogenic claudication 2. L4-5 Grade 1 spondylolisthesis, unstable. 3. 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 Grade 1 retrolitheisis L1-L2 5.Bilateral lower extremity radiculopathy Patient was seen at bedside this morning lying in the semirecumbent position in bed with dressing present over the the lumbar spine. Dressing is currently in place with a drain. Patient says she is hoping to go home today. She says she has been up under her own power with walker and brace on while up and about ambulating around the room. Patient says she has urinated since surgery without issue. Patient says she has not had a bowel movement yet, however, patient says she has been passing gas. Patient denies any other issues at this time. Objective - Vital Signs Vital signs: Vital Signs Temp 98.6 F 05/03/24 07:26 Pulse 86 05/03/24 07:26 Resp 14 05/03/24 07:26 BP 124/76 05/03/24 07:26 Pulse Ox 90 L 05/03/24 02:00 FiO2 Intake & Output 05/02/24 05/03/24 05/03/24 18:59 06:59 18:59 Output Total 250 60 Balance -250 -60 Output: Drainage 250 60 Right Back 250 60 Other: Voiding Method Toilet # Voids 2 - Exam General: The patient is awake and alert, in no acute distress Skin: Skin is warm and dry with no obvious rashes or lesions. Surgical incision to the lumbar spine, dressing is clean dry and intact with Hemovac present. Eye: Pupils are equal, round and reactive to light, extra-ocular movements are intact; there is normal conjunctiva bilaterally. Neck: The neck is supple, there is no tenderness and ROM intact. Cardiovascular: There is a regular rate and rhythm. No murmur, rub or gallop is appreciated. Respiratory: Lungs are clear to auscultation, respirations are non-labored, breath sounds are equal. Gastrointestinal: Soft, non-distended, non-tender abdomen. Back: There is no tenderness to palpation in the midline, paralumbar, parathoracic or buttocks region. There is no obvious deformity . Musculoskeletal: ROM limited secondary to pain and stiffness from surgical procedure. Muscle strength in all major muscle groups of bilateral upper extremities 5/5, bilateral lower extremities 4/5. Neurological: CN 2-12 intact. There are no obvious motor or sensory deficits. Movement and coordination equal and intact. Sensory exam to light touch intact C5-T1 and intact from L2-S1. Reflexes 2/4 in bilateral upper and lower extremities. Negative Hoffmans, babinski, and clonus signs. Psychiatric: Cooperative, appropriate mood & affect, normal judgment. - Labs CBC & Chem 7: 05/02/24 03:55 05/02/24 03:40 Assessment and Plan Assessment: 1. L4-S1 spondylosis with stenosis severe and neurogenic claudication 2. L4-5 Grade 1 spondylolisthesis, unstable. 3. 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 Grade 1 retrolitheisis L1-L2 5.Bilateral lower extremity radiculopathy -Postop day 2 to status post L4-S1 open Decompression and fusion Plan: 1. 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 Patient stable bedside this morning. Patient has been doing well with therapy and has been walking under her own power with the aid of a walker and brace on while up and about. Pain medication as needed. Dressing was changed at bedside. Drain was removed at bedside. Discharge home today with home care. 2. Appreciate medical management 3. Pain management -[place]; Flexeril 4. DVT prophylaxis -aspirin 5. GI prophylaxis -senna 6. PT/OT -weightbearing as tolerated with walker and brace on while up and a bout 7. Encourage incentive spirometer use 8. Discharge planning -discharge home today with home care. Time with Patient: Less than 30
== END 2024-05-03 12:06 | disposition home or self-care (01) | DRG 428 ==
LOC: OR 05:33 → 4SSUR 10:53 → OR 12:41 → 4SSUR 12:41
PROVIDERS: ADMIT Orthopaedic Surgery; ATTEND Orthopaedic Surgery
PROC: 0SG0071 Fusion of Lumbar Vertebral Joint with Autologous Tissue Substitute, Posterior Approach, Posterior Column, Open Approach (ICD-10-PCS; 2024-05-01)
PROC: 0SG30AJ Fusion of Lumbosacral Joint with Interbody Fusion Device, Posterior Approach, Anterior Column, Open Approach (ICD-10-PCS; 2024-05-01)
PROC: 0SG3071 Fusion of Lumbosacral Joint with Autologous Tissue Substitute, Posterior Approach, Posterior Column, Open Approach (ICD-10-PCS; 2024-05-01)
PROC: 01NB0ZZ Release Lumbar Nerve, Open Approach (ICD-10-PCS; 2024-05-01)
PROC: 01NR0ZZ Release Sacral Nerve, Open Approach (ICD-10-PCS; 2024-05-01)
PROC: 0ST40ZZ Resection of Lumbosacral Disc, Open Approach (ICD-10-PCS; 2024-05-01)
PROC: 0ST20ZZ Resection of Lumbar Vertebral Disc, Open Approach (ICD-10-PCS; 2024-05-01)
PROC: 0QS00ZZ Reposition Lumbar Vertebra, Open Approach (ICD-10-PCS; 2024-05-01)
PROC: 8E0WXBZ Computer Assisted Procedure of Trunk Region (ICD-10-PCS; 2024-05-01)
PROC: 0SG00AJ Fusion of Lumbar Vertebral Joint with Interbody Fusion Device, Posterior Approach, Anterior Column, Open Approach (ICD-10-PCS; principal; 2024-05-01 07:30)
DX: M43.16 Spondylolisthesis, lumbar region (principal); J44.9 Chronic obstructive pulmonary disease, unspecified; I10 Essential (primary) hypertension; G89.29 Other chronic pain; M47.26 Other spondylosis with radiculopathy, lumbar region; M48.062 Spinal stenosis, lumbar region with neurogenic claudication; M47.27 Other spondylosis with radiculopathy, lumbosacral region; M48.07 Spinal stenosis, lumbosacral region; H91.90 Unspecified hearing loss, unspecified ear; M81.0 Age-related osteoporosis without current pathological fracture; M51.16 Intervertebral disc disorders with radiculopathy, lumbar region; Z79.82 Long term (current) use of aspirin; Z79.1 Long term (current) use of non-steroidal anti-inflammatories (NSAID); Z79.83 Long term (current) use of bisphosphonates; Z79.899 Other long term (current) drug therapy
CPT/HCPCS: 72100; 72131; 80053; 85025; 88304; 94760

== ENCOUNTER → 2024-11-30 | Day surgery (SDC) | payer MEDICARE ==
[~2024-11-30] MED LIST changes: +LACTATED RINGERS 1,000 ML IV SCH; +ROPIVACAINE 5MG/ML 20ML VIAL ONE; -TRANEXAMIC 1,000 MG/100ML-NACL 1,000 MG in SALINE 1 100ML.BAG IVPB PRN; +TRIAMCINOLONE ACETONIDE 40 MG/ML 1 ML VIAL ONE
[2024-11-30] MEDS: IV FLUID CONTINUATION 1,000 ML IV ONE (10:38)
[2024-11-30 10:46] VITALS: TEMP 97.9
--- NOTE | 2024-11-30 11:29 | P.PCN ---
Date of Procedure: 11/30/24 Description of Procedure: LEFT SACROILIAC JOINT INJETION Procedure: Sacroiliac Joint Injection under biplanar fluoroscopy Preoperative diagnosis: lumbar postlaminectomy syndrome Postoperative diagnosis: , neck to be syndrome Indications: low back pain with weight-bearing Surgeon: Dr. Suzanne HERRERA Anesthesia: None The patient was seen and examined in the [facility]. Procedure risks and benefits were fully reviewed with the patient. Informed consent for procedure was obtained. The patient was taken into the office fluoroscopy procedure room and placed prone on the table. A pillow was placed under the abdomen to reduce lumbar lordosis. Vital signs were closely monitored during the procedure. AP and oblique views of the sacral spine and pelvis were obtained under fluoroscopy and entry site(s) over the sacroiliac joint(s) were marked. Skin was prepped with Betadine X 3 and draped in usual sterile manner. Sterile technique was observed throughout the procedure. Fluoroscopy was used to visualize the LEFT S.I. joint(s). 5 cc Lidocaine 1% was infiltrated with a 25 gauge needle over entry site(s) to achieve adequate local anesthesia of the skin and subcutaneous tissue. A 22 gauge spinal needle was introduced into the inferior one-third of the sacroiliac joint under fluoroscopic guidance. A mixture of 40 mg Kenalog in 2ml 0.5% Ropivacaine was injected after negative aspiration. The needle was then withdrawn intact. No complications were noted during the procedure. The patient tolerated the procedure well. The patient was placed in supine position and transferred to the recovery room for observation and remained in stable condition until discharged home. Home discharge instructions were given to the patient by the staff.
[2024-11-30 11:59] VITALS: BP 115/66; PULSE 69; RESP 17
--- NOTE | 2024-11-30 12:47 | FL ---
Fluoroscopy INDICATION: Pain FINDINGS: Fluoroscopy time: 9.4 seconds. Total dose area product (DAP) in uGy*m?, mGy*cm? (or similar): 0.31766 Images obtained: 2. Images document needle tract towards the sacroiliac joint IMPRESSION: 1. Documentation of fluoroscopy. [facility], , 11/30/2024 12:45 PM
== END ==
LOC: ORPAIN 08:43
PROVIDERS: ATTEND Anesthesiology
DX: M96.1 Postlaminectomy syndrome, not elsewhere classified (principal)
CPT/HCPCS: 27096; J3301; J2795

== ENCOUNTER → 2024-12-03 | Outpatient (CLI) | payer MEDICARE ==
--- NOTE | 2024-12-04 10:10 | MR ---
EXAMINATION TYPE: MR lumbar spine wo con DATE OF EXAM: 12/03/2024 10:27 AM COMPARISON: 02/09/2023 CLINICAL INDICATION: Female, 79 years old with history of M54.50, M43.26, M62.81 Lumbar pain, low ada k pain LLE radiculopathy since LSP fusion 05/01/24 TECHNIQUE: Multiplanar, multisequence images of the lumbar spine were acquired. IV Contrast: mL (None, if empty) FINDINGS: Cord ends at the L1. Postsurgical changes within the L4-S1 levels with pedicle screws and fixation rods. This causes susceptibility artifact in some limitation. L5-S1: No focal disc herniation or significant disc bulge. No spinal canal stenosis. Neural foramen are poorly visualized due to susceptibility artifact. L4-L5: No focal disc herniation or significant disc bulge. No spinal canal stenosis. Neural foramen are poorly visualized due to susceptibility artifact. Minimal spondylolisthesis is present at L3-4 w ith retrolisthesis of L3 posterior to L4 and L4-5 with anterolisthesis of L4 on L5. Spondylolisthesis appears stable from presurgical imaging. L3-L4: Broad-based disc bulge is anterior thecal sac flattening. No AP spinal canal stenosis present. Mild right and severe left foraminal stenosis present Facet hypertrophy is present. Some posterior lateral thecal sac compression is evident. L2-L3: Disc uncovering and broad-based disc bulge with anterior thecal sac flattening. Facet hypertro phy has mild posterior lateral thecal sac compression. No spinal canal stenosis. Neural foramen are p atent. L1-L2: Broad-based disc bulge is present with anterior thecal sac contact. Mild facet hypertrophy is present. Neural foramen are patent some narrowing of the disc height is present. T12-L1: Mild subligamentous disc herniation is present. No cord contact or spinal canal stenosis is p resent. Neural foramen are patent. IMPRESSION: 1. Retrolisthesis of L3 posterior on L4. Mild anterolisthesis of L4 on L5 is present. 2. Postsurgical changes L4-S1 causes some limitation of the evaluation of these levels. [facility], , 12/04/2024 10:08 AM
== END | disposition home or self-care (01) ==
LOC: RADMRIMAIN 09:39
PROVIDERS: ATTEND Orthopaedic Surgery
DX: M43.26 Fusion of spine, lumbar region (principal); M43.16 Spondylolisthesis, lumbar region; Z98.890 Other specified postprocedural states
CPT/HCPCS: 72148

== ENCOUNTER → 2024-12-20 | Outpatient (CLI) | payer MEDICARE ==
[2024-12-20 10:58] VITALS: BP 123/85; PULSE 69; RESP 16; TEMP 96.1
--- NOTE | 2024-12-20 15:17 | P.PAINPG ---
Objective - Vital Signs Vital signs: Vital Signs Temp 96.1 F L 12/20/24 10:53 Pulse 69 12/20/24 10:53 Resp 16 12/20/24 10:53 BP 123/85 12/20/24 10:53 Pulse Ox 98 12/20/24 10:53 FiO2 Intake & Output 12/19/24 12/20/24 12/20/24 18:59 06:59 18:59 Weight 60.781 kg PQRS Measure Charge Sheet Mode of Arrival: Cane Comment: HISTORY OF PRESENT ILLNESS: A 79 yr old female presents today w severe and chronic LBP secondary to L4-S1 PLIF w CAGE x2 for evaluation s/p L SI #1. Pt states she experienced 80% pain relief x 1 wk s/p procedure. Pt states pain level is provoked at 8 /10 in intensity, intermittent, localized in the lower lumbar spine, predominantly axial, achy in character w shooting pain to the BL thighs. Pain is provoked by climbing stairs or walking/ standing for a periods > 10 min. Pain is alleviated by PT x 6 wks which ended in October 2024, physician guided exercises 3 times weekly since Nov 2022, heat, ice, medications, topical, reclining, repositioning and rest. Oswestry axial pain score at 14. Interventional procedures include HYACINTH L5-S1 x1, BL TFESI L5-S1 x1, BL RFA L3-L5 (October 2023), L SI x1 (12/19) Medications include [place] 7.5/325mg, Neurontin, Tyl, Robaxin 750mg, Mobic 7.5mg REVIEW OF ORGAN SYSTEMS: CONSTITUTIONAL: No fevers or chills. No recent weight loss. NEUROLOGICAL: + numbness and tingling along the distal extremities. No seizure disorders or headaches. MUSCULOSKELETAL: + pain PSYCHIATRIC: Denies current depression or suicidal thoughts. Physical Examinations : Constitutional : Cooperative , not in acute distress . Neurologic : Cranial nerve II to XII intact. No focal neurological deficits. Psychiatric : alert & oriented x 3. Matching mood & appropriate affect. Judgment & insight intact. Musculoskeletal : Cervical Spine Motor strength in the deltoid and biceps: Normal right side. Normal Left side Motor strength biceps and the wrist extensors: Normal right side . Normal left side Motor strength in the triceps muscle: Normal right side. Normal left side Deep tendon reflexes: Normal at the biceps. Normal at Brachioradialis. Normal at triceps Vertebral body tenderness to deep palpation over Cervical facet loading test: positive bilaterally Spurling test: positive bilaterally Neck distraction test: positive bilaterally Hugo sign: positive bilaterally Lumbar spine Motor strength lower extremities ,thigh and legs 5/5 Right side , 5/5 Left side Deep tendon reflexes : Normal Knee Jerk. Normal Ankle Jerk Vertebral body tenderness L3 Davey Test positive BL L3-L4 Taut bands w twitch response Lumbar facet Loading Test: positive Right / positive Left L4-L5, L5-S1 Range of motion of the lumbar spine Flexion 30 degrees, extension 10 degrees Straight Leg Raise test: Left/ Right positive at 35 degrees Molly test: positive right / positive left. Severe tenderness over the Sacroiliac joint on the Right / Left sides Gaenslen test: positive bilaterally Seated flexion test: positive bilaterally. Sacral spine : Severe tenderness over the Sacroiliac joint: right side / left side Range of motion: Flexion of the lumbar spine <60 degrees Range of motion: Extension of the lumbar spine <20 degrees Gaenslen's Test positive L Brenton's Test positive L Molly test: positive right side / left side L positive Thigh Thrust Test L positive Sacral Thrust Test Imaging: MRI non contrast of the lumbar spine from 02/09/23 reviewed Assessment/ Plan : L4-S1 PLIF w CAGE x2 (Apr 2024), L Sacroiliitis Recommendation of HYACINTH L3-L4 #1. Risks, benefits of procedure discussed and patient verbalized understanding. Protocol for discontinuation/ continuation of medications arnulfo procedure discussed. All questions answered. I have spent greater than 30 minutes on patient care today. Dr Mc was available by phone for the evaluation of this patient. The time was used to review the medical records including relevant urine studies and Prescription history (MAPs), review of the available imaging, evaluation and examination of the patient, coordination of care with the medical staff and if applicable ref erring physicians, as well as creation of the medical record - Pain Location Bilateral Lower Back Non-Pharmacological Interventions: Elevation, Heat, Ice, Inactivity, Physical Therapy, Position/Reposition, Sitting, Stretching Pharmacological Interventions: Block, Epidural, PRN Medication PQRS Narrative: Blood Pressure 123/85 Pain Intensity [Bilateral 7 Lower Back] Scale Used Numeric (1 - 10) Hx Alcohol Use (MH) No Home Medications: Ambulatory Orders Aspirin 81 mg PO DAILY 07/08/21 Losartan Potassium [Cozaar] 100 mg PO DAILY 07/08/21 Cholecalciferol [Vitamin D3 (25 Mcg = 1000 Iu)] 25 mcg PO DAILY 03/21/23 Cyanocobalamin (Vitamin B-12) [Vitamin B-12] 1,000 mcg PO DAILY 03/21/23 Turmeric Root Extract [Turmeric] 500 mg PO DAILY 03/21/23 Budesonide/Glycopyr/Formoterol [Breztri Aerosphere Inhaler] 2 puff INHALATION BID 10/20/23 Meloxicam [Mobic] 7.5 mg PO DAILY 30 Days #30 tab 12/08/23 [place]-3/Dha/Epa/Fish Oil [Fish Oil 1,000 mg Softgel] 1 each PO DAILY 04/26/24 Acetaminophen [Tylenol Arthritis] 3 tab PO BID 11/29/24 Naproxen 500 mg PO BID 11/29/24 Controlled Substance Measures - Controlled Substance Measures Is patient prescribed a controlled substance at discharge?: No
== END ==
LOC: PNWHC3 10:44
PROVIDERS: ATTEND Specialist
DX: M46.1 Sacroiliitis, not elsewhere classified (principal); M96.1 Postlaminectomy syndrome, not elsewhere classified; Z95.1 Presence of aortocoronary bypass graft
CPT/HCPCS: 99211

== ENCOUNTER → 2025-01-10 | Day surgery (SDC) | payer MEDICARE ==
[~2025-01-10] MED LIST changes: -ROPIVACAINE 5MG/ML 20ML VIAL ONE; -TRIAMCINOLONE ACETONIDE 40 MG/ML 1 ML VIAL ONE
[2025-01-10 09:21] VITALS: BP 110/89; PULSE 78; RESP 16; TEMP 97.1
== END ==
LOC: ORPAIN 08:15
PROVIDERS: ATTEND Pain Medicine Interventional Pain Medicine
DX: M54.16 Radiculopathy, lumbar region (principal); Z53.9 Procedure and treatment not carried out, unspecified reason

== ENCOUNTER 2025-01-15 13:21 | Day surgery (SDC) | payer MEDICARE ==
[2025-01-11 12:05] VITALS: BMI 22.6
[2025-01-15 13:59] VITALS: TEMP 97
[2025-01-15] MEDS ORDERED: methylPREDNISolone ACETATE 80 MG/ML 1 ML VIAL ONE (14:52)
[2025-01-15] MEDS ORDERED: IOPAMIDOL M300 15ML VIAL ONE (14:52)
--- NOTE | 2025-01-15 15:04 | P.PCN ---
Description of Procedure: PREOPERATIVE DIAGNOSIS: 1- Lumbar Degenerative Disc Diseases 2-Lumbar spondylosis with Facet arthropathy without myelopathy. 3-lumbar spinal stenosis 4-Lumber radiculopathy POSTOPERATIVE DIAGNOSIS: 1-lumbar degenerative disc disease. 2-lumbar spondylosis with facet arthropathy without myelopathy. 3-lumbar spinal stenosis. 4-Lumber radiculopathy PROCEDURE Injection of radio contrast material into L3-4 interspace, interpretation of epidurogram, injection of steroid at L3-4 epidural space under fluoroscopic guidance. ANESTHESIA: Lidocaine 1% subcutaneously. In OR continuous pulse ox, EKG, blood pressure and verbal communication was maintained with the patient. EBL: Minimal PROCEDURE INDICATION: Before the procedure were discussed with the patient detailed procedure, alternatives, complications including infection, bleeding, nerve damage, paralysis all of which could be permanent. Patient understands and all questions were answered. PROCEDURE DESCRIPTION : After getting consent, patient in OR in prone position. Back was prepped with chlorhexidine and draped in sterile fashion. After injecting 10 mL of 1% lidocaine subcutaneously, a 20-gauge Tuohy needle was introduced at L3-4 interspace with loss of resistance technique using a syringe filled with air. Negative CSF, negative blood, negative paresthesia. Needle position was confirmed with AP and lateral view of the fluoroscope. After repeat negative aspiration 2 mL of Omnipaque 200 water soluble contrast was injected. Contrast was noted in the epidural space. No contrast was noted into intrathecal or intravascular space. After repeat negative aspiration 6 mL solution was injected intermittently which consists of 5 mL of preservative-free normal saline mixed with 1 mL of 80 mg Depo-Medrol. Needle was withdrawn intact. Skin was cleansed and Band-Aids was applied. DISPOSITION / PLANS: The patient tolerated the procedure well. No complication. The patient was placed in a supine position and transferred to the recovery area in a stable condition for observation. There was no evidence of lower extremity motor or sensory deficit after the procedure. Patient was discharged from the recovery room after meeting discharge criteria. Home discharge instructions were given to the patient by the staff. The patient was reexamined prior to discharge. The patient will schedule a follow up in the clinic in 2-4 weeks.
[2025-01-15 15:23] VITALS: BP 112/84; PULSE 82; RESP 18
--- NOTE | 2025-01-15 15:43 | FL ---
Fluoroscopy INDICATION: Pain FINDINGS: Fluoroscopy time: 10 seconds. Total dose area product (DAP) in uGy*m?, mGy*cm? (or similar): 0.40665 Images obtained: 3. Images document needle directed towards the lumbar spine region IMPRESSION: 1. Documentation of fluoroscopy. [facility], Workstation: [facility], 01/15/2025 3:41 PM
== END 2025-01-15 15:37 | disposition home or self-care (01) ==
LOC: ORPAIN 13:21
PROVIDERS: ATTEND Pain Medicine Interventional Pain Medicine
DX: M48.061 Spinal stenosis, lumbar region without neurogenic claudication (principal); M47.26 Other spondylosis with radiculopathy, lumbar region; M51.369 Other intervertebral disc degeneration, lumbar region without mention of lumbar back pain or lower extremity pain
CPT/HCPCS: 62323; Q9967; J1010